=== PATIENT | male | born 1970 | race Caucasian/White ===

== ENCOUNTER → 2018-01-07 09:59 | Outpatient (CLI) | payer OTHER, SELFPAY ==
--- NOTE | 2018-01-07 10:01 | RAD_ITS ---
STUDY: X-RAY - LEFT ELBOW REASON FOR EXAM: Male, 47 years old. Pain TECHNIQUE: 3 view(s) of the elbow. COMPARISON: None. FINDINGS: Normal visualized humerus, radius and ulna. Normal radiocapitellar and ulnotrochlear articulations. The soft tissue structures are unremarkable. RAD/Elbow min 3 Views IMPRESSION: Normal x-ray examination of the elbow. Electronically Signed: Douglas Castillo MD at 22:03 EDT Tel , Service support ,
--- NOTE | 2018-01-07 10:01 | RAD_ITS ---
STUDY: X-RAY - LEFT SHOULDER REASON FOR EXAM: Posterior shoulder pain status post lifting weights. TECHNIQUE: 3 view(s) of the shoulder. COMPARISON: Radiographs 05/24/2013. FINDINGS: Normal glenohumeral articulation. Normal acromioclavicular joint. Normal acromion. Normal humeral head and visualized proximal humerus. The soft tissue structures are unremarkable. Normal visualized pulmonary apex. RAD/Shoulder min 2 Views IMPRESSION: Normal x-ray examination of the left shoulder. Electronically Signed: Kade Castelan MD at 16:16 EDT Tel , Service support ,
== END ==
PROVIDERS: Family Provider Family Medicine; PCP Family Medicine; Visit Provider Orthopaedic Surgery
DX: M25.512 Pain in left shoulder (principal); M25.522 Pain in left elbow
CPT/HCPCS: 73030; 73080

== ENCOUNTER 2018-01-26 13:30 | Outpatient (RCR) | payer OTHER, SELFPAY ==
--- NOTE | 2018-01-13 07:56 | HP.PTEVAL_ITS ---
Patient's Visit Information CHELSI WU is a 47 year old M referred to Physical Therapy by DO STEPHANIE Cardenas with a diagnosis of L elbow and shoulder pain. Date of Evaluation: 01/13/18 Physical Therapist: David Pickett PT, - Visit Plan Frequency: 2x /Week Duration: 1 Week Plan: L shoulder: issue HEP for rotator cuff strengthening, scap stab ex's. L elbow: wrist ext stretching, Ecc ex's - Subjective Subjective: Pt reports L shoulder has been sore for the past 6 weeks. Pt reports he was working out at the time, bench pressing, when he experienced a severe pain in his L shoulder. Pt notes he also began to experience L elbow pain at the same time that radates into his L pinky finger. Pt reports he tore the labrum in his L shoulder about 18 years ago that was never surgically repaired. Pt is R hand dominant. No sleep diff at this time. Pt reports he did have xrays, but no positive findings in the shoulder or elbow. 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 Pt reports he works out at home , which doesnt seem to cause him pain. L shoulder 3/10 at rest (a dull throb), and stays about the same. L elbow pain 4/10 at rest, 7/10 at worst (graping an object) - Pain L shoulder Pain Intensity (Out of 10): 3 Pain Intensity Range: 3 L elbow Pain Intensity (Out of 10): 4 Pain Intensity Range: 7 - Objective Neuro: B UE sensation is WNL to light touch. B biceps reflex= 1/3. Palpation: Pt has minor tenderness on the posterior aspect of L shoulder. No obvious deformity. Minor tenderness on the lateral epicondyle. Shoulder ROM: L shoulder flex= 155, abd= 150, ER= 50, IR WNL; R shoulder flex= 150, abd= 150, ER = 60, IR WNL. Elbow ROM: R wrist flex= 70, ext= 60; L wrist flex= 60, abd= 50. Shoulder MMT: B shoulders are 5/5 with exception to L shoulder ER= 4/5. Elbow MMT:B wrist flex and ext 5/5, with exception to L wrist ext= 4/5 and painful. Special testing: No pos tests on this date - Goals Goal 1:: I with HEP in 2-4 visits Goal Time Frame: 1 Week - Rehabilitation Potential Physical Therapy Diagnosis: Pt has L elbow pain and limited ROM secondary to lat epichondylitis. Pt has L shoulder pain and weakness secondary to rotator cuff deficiency. Rehabilitation Potential: Good - Anticipated Interventions Patient/Client Instruction: Educate patient on: Condition For the Purpose of:: To improve self management Therapeutic Exercise to Include: Strength training, Flexibilty training, Active ROM, Scapular Strength/Stabilization For the Purpose of:: To decrease pain, To increase ROM, To improve muscle performance and motor function Cryotherapy (ice pack, ice massage): Yes For the Purpose of:: To decrease pain Thank you for the opportunity to evaluate your patient. For Medicare and Medicare HMO plans, please review the plan of care and approve it. It will need to be FAXED BACK to us at [phone] for Medicare purposes. Please let me know if there are questions or concerns regarding this plan of care. Physician Signature: Date:
--- NOTE | 2018-03-10 08:43 | HP.PT.NRP ---
HP - Discharge Summary (1) - Patient Information CHELSI WU was seen in my office for initial evaluation on 01/13/18. The following Plan of Care was established for this patient: Initial Frequency: 2x /Week Initial Duration: 1 Week - Anticipated Interventions Patient/Client Instruction: Educate patient on: Condition For the Purpose of:: To improve self management Therapeutic Exercise to Include: Strength training, Flexibilty training, Active ROM, Scapular Strength/Stabilization For the Purpose of:: To decrease pain, To increase ROM, To improve muscle performance and motor function Cryotherapy (ice pack, ice massage): Yes For the Purpose of:: To decrease pain This patient was last seen in our office . Pertinent comments regarding their Physical therapy will appear below: Pt was last treated on the date of 01/26/18. Pt has not returned through this date, and is therefore discontinued at this time At this point I will be discontinuing this patient from physical therapy. I would be happy to see this patient again in the future if found appropriate by the physician. Thank you! David Pickett, PT,
== END 2018-01-26 19:00 | disposition home or self-care (01) ==
LOC: PT 13:30
PROVIDERS: Family Provider Family Medicine; PCP Family Medicine; Visit Provider Orthopaedic Surgery
DX: M25.312 Other instability, left shoulder (principal); M77.12 Lateral epicondylitis, left elbow
CPT/HCPCS: 97035; 97110; 97162

== ENCOUNTER → 2019-02-22 | Outpatient (CLI) | payer OTHER, SELFPAY ==
[2019-02-22 17:31] LABS: Absolute Lymphocyte Count 2.42 X10^3/ul (0.83-4.51); Absolute Neutrophil Count 4.4 X10^3/uL (2.0-7.7); Basophil# 0.02 X10^3/uL; Basophil% 0.3 % (0-1); Eosinophil# 0.23 X10^3/uL; Eosinophils% 2.9 % (0-5); Hematocrit 44.8 % (40-54); Hemoglobin 15.3 g/dl (13.0-16.5); Lymphocyte # 2.42 X10^3/ul (4.0); Mean Corp Hgb Conc 34.2 g/gl (32-36); Mean Corpuscular Hgb 28.9 pg (27.0-32.0); Mean Corpuscular Volume 84.7 fL (80-94); Neutrophil % 56.4 % (47-70); Platelet Count 204 K/mm3 (150-450); RBC Distribution Width CV 13.1 % (11.6-14.6); RBC Distribution Width SD 40.7 fl (35.1-43.9); Red Blood Count 5.29 M/mm3 (4.6-6.2); White Blood Count 7.8 K/mm3 (4.4-11.0)
[2019-02-22 17:32] LABS: POSITIVE COUNT NO; POSITIVE DIFFERENTIAL NO; POSITIVE MORPHOLOGY NO
== END | disposition home or self-care (01) ==
LOC: BFHLAB 02-23 16:23
PROVIDERS: Family Provider Family Medicine; PCP Family Medicine; Visit Provider Family Medicine
DX: R36.1 Hematospermia (principal)
CPT/HCPCS: 36415; 84153; 85025; G0103

== ENCOUNTER → 2019-05-24 | Outpatient (CLI) | payer OTHER, SELFPAY ==
[2019-05-24 08:09] VITALS: BMI 27.9
--- NOTE | 2019-05-24 08:21 | RAD_ITS ---
STUDY: X-RAY - LEFT SHOULDER REASON FOR EXAM: Increasing pain with certain motions, no specific injury. TECHNIQUE: 4 view(s) of the shoulder. COMPARISON: Radiographs 01/07/2018. FINDINGS: Normal glenohumeral articulation. Normal acromioclavicular joint. Normal acromion. Normal humeral head and visualized proximal humerus. The soft tissue structures are unremarkable. Normal visualized pulmonary apex. RAD/Shoulder min 2 Views IMPRESSION: Normal x-ray examination of the left shoulder. Electronically Signed: Kade Castelan MD at 9:13 EDT Tel , Service support ,
== END | disposition home or self-care (01) ==
LOC: HPRAD 08:21
PROVIDERS: Family Provider Family Medicine; PCP Family Medicine; Referring Provider Orthopaedic Surgery; Visit Provider Orthopaedic Surgery
DX: M25.512 Pain in left shoulder (principal)
CPT/HCPCS: 73030

== ENCOUNTER → 2019-06-02 10:22 | Outpatient (CLI) | payer OTHER, SELFPAY ==
[2019-05-24 08:09] VITALS: BMI 27.9
--- NOTE | 2019-06-02 10:35 | RAD_ITS ---
STUDY: X-RAY - LUMBAR SPINE REASON FOR EXAM: Male, 49 years old. Low back pain, no known injury TECHNIQUE: 5 view(s) of the lumbar spine were obtained. COMPARISON: Report of prior study of 11/11/2012 FINDINGS: Normal lumbar lordosis. There is no substantial scoliosis. There is a normal alignment of the vertebrae. There is mild endplate spondylosis of L2, L3, and L4. There is mild narrowing of the L2-3 and L3-4 disc spaces. The soft tissue structures are unremarkable. RAD/L/S Spine Min 4 Views IMPRESSION: Degenerative changes of the spine, as detailed above. Electronically Signed: Giuseppe Kessler MD at 16:56 EDT , Service support ,
== END ==
PROVIDERS: Family Provider Family Medicine; PCP Family Medicine; Referring Provider Physician Assistant; Visit Provider Physician Assistant
DX: R20.0 Anesthesia of skin (principal)
CPT/HCPCS: 72110

== ENCOUNTER 2019-06-13 12:00 | Outpatient (RCR) | payer OTHER, SELFPAY ==
[2019-05-24 08:09] VITALS: BMI 27.9
== END 2019-06-13 19:00 | disposition home or self-care (01) ==
LOC: PT 12:00
PROVIDERS: Family Provider Family Medicine; PCP Family Medicine; Referring Provider Orthopaedic Surgery; Visit Provider Orthopaedic Surgery
DX: M19.012 Primary osteoarthritis, left shoulder (principal); M54.5 Low back pain; M53.3 Sacrococcygeal disorders, not elsewhere classified; G57.00 Lesion of sciatic nerve, unspecified lower limb

== ENCOUNTER → 2020-05-25 14:48 | Outpatient (CLI) | payer OTHER, SELFPAY ==
[2019-07-07 15:11] VITALS: BMI 27.9
--- NOTE | 2020-05-25 14:53 | RAD_ITS ---
STUDY: X-RAY CHEST REASON FOR EXAM: Male, 50 years old. UPPER CHEST PAIN WITH INSPIRATION, HX BRONCHITIS A KID AND EXERCISE INDUCED ASTHMA TECHNIQUE: Frontal and lateral views COMPARISON: 10/04/2014 FINDINGS: The lungs are clear and expanded. There is no demonstrated pleural abnormality. Normal size heart. Normal mediastinum and dwayne. Normal visualized pulmonary arteries. Normal visualized aortic arch and descending thoracic aorta. Normal visualized thoracic spine. Normal visualized ribs, clavicles, and shoulders. There is no demonstrated abnormality of the visualized soft tissue structures of the upper abdomen. RAD/Chest PA and Lateral IMPRESSION: Normal x-ray examination of the chest. Electronically Signed: Zachariah Godinez DO at 15:52 EDT Tel [phone], Service support ,
== END ==
PROVIDERS: PCP Family Medicine; Referring Provider Family Medicine; Visit Provider Family Medicine
DX: R06.02 Shortness of breath (principal)
CPT/HCPCS: 71046

== ENCOUNTER → 2020-07-05 09:47 | Outpatient (CLI) | payer OTHER, SELFPAY ==
[2019-07-07 15:11] VITALS: BMI 27.9
--- NOTE | 2020-07-05 14:30 | PFTCOMP ---
COMPLETE PULMONARY FUNCTION TEST INTERPRETATION Brief HPI: Patient is a 50 year old male, currently under the care of Dr. Dunbar, who presents to [facility] for complete pulmonary function tests secondary to diagnosis of dyspnea. Respiratory therapist reports good effort and reproducible results. Interpretation: Forced expiration spirometry shows no large airways obstructive ventilatory defect with an FEV1 of 85% predicted. There is no significant bronchodilator response by strict ATS criteria. Spirograms are of good quality and plateau normally. The respiratory flow volume loop shows a normal pattern. Lung volumes by body plethysmography show an elevated total lung capacity at 8.67 L, 127% predicted. FRC and RV are elevated out of proportion. Lung volume measurements are consistent with hyperinflation and air-trapping. Diffusion capacity by carbon monoxide is normal at 82% predicted. The airway resistance is normal. No previous pulmonary function tests were available for review. Impression: These pulmonary function tests are grossly within normal limits. There is some element of air trapping with hyperinflation that may be related to occult small airways disease or a normal physiologic variant.
== END ==
PROVIDERS: PCP Family Medicine; Referring Provider Family Medicine; Visit Provider Family Medicine
DX: R06.02 Shortness of breath (principal)
CPT/HCPCS: 94060; 94726; 94729

== ENCOUNTER → 2020-08-07 11:31 | Outpatient (CLI) | payer OTHER, SELFPAY ==
[2019-07-07 15:11] VITALS: BMI 27.9
--- NOTE | 2020-08-07 11:34 | RAD_ITS ---
STUDY: X-RAY - PELVIS AND BILATERAL HIPS REASON FOR EXAM: Left hip pain for 2 days, no specific injury. TECHNIQUE: AP view of the pelvis.? 2 views of the right hip, and 2 views of the left hip were obtained. COMPARISON: Radiographs 11/11/2012. FINDINGS: There are small pelvic phleboliths. Normal bilateral iliac wings, sacroiliac joints and visualized sacrum. Normal bilateral superior and inferior pubic rami. Normal pubic symphysis. Normal bilateral ischial tuberosities. Normal visualized right femoral head. There is a bone island in the right supra-acetabular bone unchanged since the prior study. There is mild joint space narrowing of the right superior lateral right hip joint. There is interval development of the herniation pit in the lateral aspect of the left femoral head. Normal left acetabulum. Normal left hip joint. 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 Herniation pit in the left femoral head. Electronically Signed: Kade Castelan MD at 13:18 EDT Tel , Service support ,
== END ==
PROVIDERS: PCP Family Medicine; Referring Provider Family Medicine; Visit Provider Family Medicine
DX: M25.551 Pain in right hip (principal); M25.552 Pain in left hip
CPT/HCPCS: 73521

== ENCOUNTER 2020-08-29 19:26 | Emergency (ER) | payer OTHER, SELFPAY ==
[2019-07-07 15:11] VITALS: BMI 27.9
[2020-08-29 19:27] VITALS: BP 121/88; PULSE 81; RESP 18; TEMP 36.4; O2SAT 100; BMI 28.7
[2020-08-29] MEDS: morphine 8 MG/ML Syringe 6 MG IM (20:27)
[2020-08-29] MEDS: Ketorolac 15 MG/ML Vial IM (20:27)
--- NOTE | 2020-08-29 21:34 | ED.VIS.BACK ---
History of Present Illness Chief Complaint: Back Informant: Patient Onset: Today Context: Gradual Onset Timing: Continuous Quality: Aching Location: Lumbar Worsened by: improves with: Movement, Bending, Lifting Relieved by: Nothing Associated Symptoms: Numbness, Radiation to Left Leg Narrative: Patient is a 50-year-old male with no significant past medical history presenting with worsening low back pain. Patient states he started having low back pain about 3 weeks ago. He is followed up with orthopedist and physical therapy. He was told he likely has an L3/4 derangement. He has not had an MRI yet but he has had an x-ray. He has had numbness and burning in his left thigh to his knee for the past 3 weeks. He has been doing physical therapy and yesterday they worked in particularly hard and since then he has had worsening pain. He states the pain is now radiating to his toe he has had increased pain. He is taking gabapentin and tizanidine as well as Tylenol with no significant relief of his pain. He does have hydrocodone at home but has not taken it. He has pain with walking. No bowel or bladder incontinence. No perineal numbness noted. No fever or chills. No other complaints at this time. No new injury. Prior similar symptoms: With Prior Back Pain Past Medical History - Allergies and Home Meds Allergies/Adverse Reactions: Allergies No Known Allergies Allergy (Verified 08/29/20 19:30) Primary Care Physician: Sergio Dunbar MD [Primary Care Provider] - Past Medical History: None Surgical History: noncontributory Lives: Spouse/ Significant Other Smoking Status: Never smoker Review of Systems General: Denies: Chills, Fever, Sweats Eyes: Denies: Visual changes - bilaterally, Diplopia ENT: Denies: Rhinorrhea, Sore throat Cardiovascular: Denies: Chest pain, Palpitations Respiratory: Denies: Dyspnea, Cough, Dyspnea on exertion Gastrointestinal: Denies: Abdominal pain, Nausea, Vomiting, Diarrhea, Melena, Hematochezia Genitourinary: Denies: Dysuria, Hematuria, Frequency Musculoskeletal: Reports: Back pain - Left lower back, Extremity Pain - Left thigh Skin: Denies: Rash, Wounds Neurological: Reports: Parasthesia - Left thigh. Denies: Headache, Weakness, Numbness Physical Exam Vital Signs/Narrative: Vital Signs Temp Pulse Resp BP Pulse Ox 08/29/20 19:27 97.6 F L 81 18 121/88 H 100 Inital Vital Signs reviewed: Yes General: Well nourished, Well developed Head: Normocephalic, Atraumatic Eyes: Perrl, EOMI ENT: Moist mucous membranes, No rhinorrhea Neck: Supple, Nontender Cardiovascular: Regular rate, Regular rhythm, No murmurs Respiratory: No distress, CTA bilaterally, Chest nontender Abdomen: Soft, Nontender, Nondistended, Normal bowel sounds Back: Normal Inspection, Nontender, Positive SLR - Right. Negative for: Spinal tenderness, Paraspinal Tenderness Extremeties: Nontender, No edema, Strong Pulses, Symmetric. Negative for: Tenderness Skin: Normal color, No rash Neuro: Alert, Oriented, Normal Sensation, Normal DTR, Normal Gait, Parasthesia - Left thigh, - - 5 out of 5 strength with plantar and dorsiflexion of the feet bilaterally. Patient does have decreased strength with hip flexion by think this is more secondary to pain on the left. Sensation is intact to light touch. Reflexes: - - Intact bilateral patellar reflexes. Psychological: Normal affect Diagnostic/Tx/Re-eval - Medical Decision Making Evaluated for acute exacerbation of low back pain with associated sciatica. Patient seem to have physical therapy yesterday which exacerbated his pain. He is given a dose of IM Toradol and morphine with improvement of his symptoms. Patient has Hanover at home but is not been taking it because he is concerned about addiction potential. Patient is counseled that for acute pain it is fine to take for a short amount of time like 24 hours. He is not have any findings consistent with cauda equina syndrome or an acute cord lesion. He is neurovascularly intact. Patient is agreeable with discharge home to take his home Hanover, continue his tizanidine and add in Motrin to his regiment. He is counseled to decrease his Tylenol intake while taking the Hanover. He will follow-up with orthopedics and has an appointment to see spine next week. Patient is counseled on signs and symptoms requiring return to the emergency room. Patient verbalizes agreement and understand this plan. Patient discharged home in stable and improved condition. ED Disposition - Plan for ED Patient: Disposition: Home or Assisted Living Diagnosis: Acute exacerbation of chronic low back pain, Sciatica, left side Instructions: ED Back Pain Acute or Chronic Referrals: Sergio Dunbar MD [Primary Care Provider] - Additional Instructions: Follow-up with physical therapy as well as your orthopedist and your primary care doctor. Take Hanover (hydrocodone) tonight for your pain when you get home. Continue to take the muscle relaxer and start taking 600 mg of ibuprofen every 6 hours as needed for pain. You may continue to take Tylenol but only take one instead of two if you are also taking the hydrocodone as it has Tylenol in it as well. Return the emergency room if you develop incontinence, difficulty walking or worsening symptoms.
== END 2020-08-29 22:06 | disposition home or self-care (01) ==
PROVIDERS: Emergency Provider Emergency Medicine; PCP Family Medicine
DX: M54.42 Lumbago with sciatica, left side (principal)
CPT/HCPCS: 96372; 99283

== ENCOUNTER → 2020-11-17 07:18 | Outpatient (CLI) | payer OTHER, SELFPAY ==
--- NOTE | 2020-11-17 07:23 | MRI_ITS ---
STUDY: MRI LUMBAR SPINE WITHOUT CONTRAST REASON FOR EXAM: Male, 50 years old. back pain TECHNIQUE: Standardized fat and water weighted pulse sequences were obtained in the sagittal and axial planes. COMPARISON: X-ray 06/02/2019 FINDINGS: T12-L1: Normal endplates. Normal disc height, hydration and morphology. Normal bilateral facet joints. Normal central canal and bilateral lateral recesses. Normal bilateral intervertebral neural foramina. Normal lumbar lordosis. There is no substantial scoliosis. Normal conus medullaris that terminates at the L1/L2. L1-2: Mild bilobed disc protrusion with a right paracentral annular tear produces mild spinal stenosis and mild bilateral neural foraminal stenosis. L2-3: Mild bilobed disc protrusion produces mild spinal stenosis and mild bilateral neural foraminal stenosis. L3-4: Mild broad disc protrusion asymmetric to left produces mild spinal stenosis with mild right lateral recess stenosis, moderate left lateral recess stenosis with abutment of the left L4 nerve root and mild bilateral neural foraminal stenosis. L4-5: Mild broad disc protrusion produces mild spinal stenosis with mild bilateral lateral recess stenosis and mild bilateral foraminal stenosis. L5-S1: Mild broad disc protrusion produces mild spinal stenosis and mild bilateral neural foraminal stenosis. Normal visualized sacral ala. Normal visualized paraspinous soft tissue structures. MRI/Spine Lumbar (Routine) IMPRESSION: Multilevel degenerative changes, as described above. Electronically Signed: Donte Rico MD at 10:45 EST Tel , Service support ,
== END ==
PROVIDERS: PCP Family Medicine; Referring Provider Orthopaedic Surgery; Visit Provider Orthopaedic Surgery
DX: M54.16 Radiculopathy, lumbar region (principal)
CPT/HCPCS: 72148

== ENCOUNTER 2020-11-23 12:00 | Outpatient (RCR) | payer OTHER, SELFPAY ==
--- NOTE | 2020-09-18 10:28 | HP.PTEVAL ---
Patient's Visit Information CHELSI WU is a 50 year old M referred to Physical Therapy by BRENDA GROSS with a diagnosis of LUMBAR SPINAL STENOSIS AND HNP WITH RADICULOPATHY. Date of Evaluation: 09/18/20 Physical Therapist: Merlyn Vee, PT, Cert MDT - Visit Plan Frequency: 2-3x /Week Duration: 4-6 Weeks Plan: US, E-STIM WITH MH, POSTURE CORRECTION/STRENGTHENING, INSTRUCTION IN APPROPRIATE BODY MECHANICS AND ACTIVITY MODIFICATIONS. DLS STARTING WITH A NEUTRAL SPINE PROGRESSING ROM TOLERATED. SANIYA LE ROM, STRETCHING AND STRENGTHENING. HEP INSTRUCTION. CONSIDER AQUATIC THERAPY AFTER CONSULT WITH DR. MACHADO. 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 Present symptoms: LEFT KNEE NUMBNESS. NOT CURRENTLY HAVING LOW BACK. INTERMITTENT RIGHT LATERAL THIGH NUMBNESS. I DON'T WALK NORMALLY. MY LEFT THIGH IS ATROPHYING. LEFT CALF NUMBNESS. RECENT HISTORY OF RIGHT TOE NUMBNESS. PATIENT IS DESCRIBING LE NUMBNESS AND WEAKNESS LEFT > RIGHT. Present since: 6 WEEKS. Pain Scale: CURRENTLY NO PAIN BUT UP TO 8/10 PAIN 6 WEEKS AGO IN LEFT LEG. Commenced as a result of: WOKE UP WITH IT. NO APPARENT REASON. Symptoms at onset: LEFT LEG PAIN. Worse: PROLONGED WALKING POSSIBLY. WALKING UP/DOWN STEPS IS WIERD. FEELS LIKE L KNEE MIGHT BUCKLE. Better: SITTING IS THE BEST. Disturbed sleep: NO. Previous history/Previous treatment: NO BACK SURGERY. NO MRAY JO'S. H/O CHIROPRACTIC TREATMENTS WITH THE LAST TREATMENT BEING ABOUT AUG 2019. A FEW VISITS NEEDED OVER THE YEARS. HAS BEEN BEEN TO PT FOR L MORGAN, FOREARM. EPISODE OF BACK PAIN ABOUT A YEAR AGO - WENT TO [facility] AND GAVE UP AEROBIC EX AND FULL RECOVERY UNTIL 6 WKS AGO. DID START PLAYING TENNIS AGAIN THOUGH. Treatment this episode: GABAPENTIN AND MALOXACAM. ABOUT 4 PT VISITS AT [facility] - PATIENT REPORTS FIRST 2 GIBRAN'TS TRYING TO SEE WHAT HE COULD AND COULDN'T DO. STARTED SOME HERON PUSH UPS AND TRIED TRACTION. A PT INCREASED TRACTION FROM 105 LBS TO 130 LBS. RESULTED IN LEFT KNEE BURNING. GOT BETTER THEN 4 VISIT DECREASED TX AND EVERYTHING WENT FINE. VISIT 5 - WENT IN FEELING WELL BUT WAS PUT ON A PASSIVE EXTENSION MACHINE FOR 50 REPS AND ENDED UP IN ED THAT NIGHT IN EXTREME PAIN - LIGHTENING PAIN DOWN LLE TO TOE. WENT TO PHYSICIAN FOLLOW UP IN W/C AND HAD TO USE CRUTCHES. LAST PT VISIT WAS APPROX Aug. Aug CONSULT WITH DR. KOHLI (FIRST PERSON AVAILABLE) - BASED ON MRI RESULTS - GAVE 3 OPTIONS: DO NOTHING, PT, OR MIRCRODISCECTOMY. SECOND OPINION PENDING WITH DR. CARTER PETERSON. Coughing/sneezing/straining: NEGATIVE. Gait: LLE FEELS WEAK AND FEELS LIKE L LEG MIGHT BUCKLE. HAS TO BE REALLY CAREFUL ON THE STEPS. PATIENT REPORTS HIS LEFT LEG DOESN'T ACT NORMALLY WHEN HE WALKS AND HE HAS TO WALK VERY INTENTIONALLY. Difficulty initiating urinatin: NOT CURRENTLY. Accidents: NO. Unexplained weight loss: NO. Imaging: MRI 09/03/20 - L34 OR L45 HERNIATION. PMH: UNREMARKABLE. - Objective Sitting/Standing Posture: FAIR. Lordosis: MILDLY DECREASED. Lateral shift: NO. Relevant shift: N/A. Active Correction of posture: WORSE - PULLS IN L LB. Other Observations: INDEP GAIT AND TRANSFERS. Motor deficit: RIGHT LE 5/5. LEFT HIP 4-/5, KNEE EXT 4/5, KNEE FLEX 4/5, ANKLE DORSIFLEX 4/5, PLANTAR FLEXION 4-5/5. Sensory deficit: DECREASED LEFT LE COMPARED TO RIGHT. ROM deficit: SANIYA HIP FLEXOR, HS AND L GASTROC-SOLEUS TIGHTNESS. Reflexes: RIGHT LE 2/3, LLE ABSENT. Dural Signs: MILDLY POSITIVE SANIYA LE'S L>R. Lumbar mvmt loss: flex - MOD. ext - MIN. R SG - MOD. L SG - MIN. Core strength: FAIR. Palpation: MILD TENDERNESS L345 REGION. TREATMENT: NEUROMUSCULAR REEDUCATION - RETRAINING OF MVMT AND POSTURE FOR SITTING, LYING AND STANDING ACTIVITIES. NEUROMUSCULAR EDUCATION OF HNP AND POSSIBLE FACTORS LEADING TO HNP. - Goals Goal 1:: DECREASE C/O BACK AND LLE SX'S Goal Time Frame: 4-6 Weeks Goal 2:: IMPROVE WALKING, LIFTING AND RECREATIONAL FUNCTION Goal Time Frame: 4-6 Weeks Goal 3:: INSTRUCT IN PROPHYLAXIS Goal Time Frame: 4-6 Weeks - Anticipated Interventions Patient/Client Instruction: Educate patient on: Condition, Plan of Care, Risk Factors, Benefits of Fitness Program For the Purpose of:: To improve self management Therapeutic Exercise to Include: Strength training, Body mechanics, Postural training, Flexibilty training, Neuromotor development, In an aquatic setting, Dynamic Lumbar Stabilization For the Purpose of:: To decrease pain, To increase ROM, To improve muscle performance and motor function, To increase tolerance to activity/condition/position, To improve ability of physical actions for home/community/work/leisure TENS: Yes IF ES: Yes Cryotherapy (ice pack, ice massage): Yes Thermo therapy (hot pack): Yes Ultrasound (thermal/non thermal): Yes For the Purpose of:: To decrease pain, To improve nutrient delivery to tissue Thank you for the opportunity to evaluate your patient. For Medicare and Medicare HMO plans, please review the plan of care and approve it. It will need to be FAXED BACK to us at [phone] for Medicare purposes. For Medicare only, by signing this I certify the plan of care. Please let me know if there are questions or concerns regarding this plan of care. Physician Signature: Date:
--- NOTE | 2020-10-18 11:26 | HP.PTREVAL ---
BRENDA GROSS, It has been my pleasure to treat CHELSI WU over the last 11 visits for LUMBAR SPINAL STENOSIS AND HNP WITH RADICULOPATHY. Please see the progress note below for an update on the physical therapy plan of care! Subjective: Nothing new to note. Objective/Function: Adding LLE SLR to HEP today d/t demo's of TKE lag with NWBing DLP tasks (such as hip flex/ext). Unable to manage LLE SLS for noodle stomp without UE support, as compared to RLE. Very minimal cues needed from this MERCH[employer]ISE SUPPORT ASSOCIATE d/t pt's improved awareness to neutral pelvis. Demo'ing weakness at times through abdominals and glutes as well as tightness through piriformis with tendancy to rotate in sagittal plane tasks. Plan Plan: *f/u with supervising PT next appt. Would recommend transition to land PT in some way. Possibly alternating between land and pool appts. Struggling with neutral pelvis through LLE at ~50% WBing. *f/u with new HEP SLR. AQUATIC THERAPY FOR POSTURE CORRECTION/STRENGTHENING, INSTRUCTION IN APPROPRIATE BODY MECHANICS AND ACTIVITY MODIFICATIONS. DLS WITH A NEUTRAL SPINE. SANIYA LE ROM, STRETCHING AND STRENGTHENING. HEP INSTRUCTION. Goals Goal 1:: DECREASE C/O BACK AND LLE SX'S Goal Time Frame: 4-6 Weeks Goal Progress: Progressing Goal 2:: IMPROVE WALKING, LIFTING AND RECREATIONAL FUNCTION Goal Time Frame: 4-6 Weeks Goal Progress: Progressing Goal 3:: INSTRUCT IN PROPHYLAXIS Goal Time Frame: 4-6 Weeks Goal Progress: Progressing Anticipated Interventions Patient/Client Instruction: Educate patient on: Condition, Plan of Care, Risk Factors, Benefits of Fitness Program For the Purpose of:: To improve self management Therapeutic Exercise to Include: Strength training, Body mechanics, Postural training, Flexibilty training, Neuromotor development, In an aquatic setting, Dynamic Lumbar Stabilization For the Purpose of:: To decrease pain, To increase ROM, To improve muscle performance and motor function, To increase tolerance to activity/condition/position, To improve ability of physical actions for home/community/work/leisure TENS: Yes IF ES: Yes Cryotherapy (ice pack, ice massage): Yes Thermo therapy (hot pack): Yes Ultrasound (thermal/non thermal): Yes For the Purpose of:: To decrease pain, To improve nutrient delivery to tissue Please do not hesitate to contact me at [phone] by phone or if you have questions or concerns regarding this new plan of care! Sincerely, Merlyn Vee, PT, Cert MDT
--- NOTE | 2020-11-19 12:58 | HP.PTREVAL_ITS ---
Dr. 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 Please see the progress note below for an update on the physical therapy plan of care! Subjective: PATIENT REPORTS HE HAS NO PAIN AND CAN FUNCTION NORMALLY DO EVERYTHING. PATIENT REPORTS HIS BACK IS PROBABLY BETTER THAN EVERY BECAUSE HE IS STRETCHING AND SITTING RIGHT. STATES HE CAN SLEEP ALL NIGHT, SIT AT WORK, AND STAND AT WORK WITHOUT SX'S. THESE ARE THINGS HE COULDN'T DO BEFORE WITH OUT FOR INSTANCE HIS FEET GOING NUMB STANDING AT WORK. 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 PATIENT REPORTS HE TOLERATED THE LAST LAND SESSION WELL. FELT A LITTLE SHAKY ON HIS LLE BUT IT IS GETTING BETTER. PATIENT STATES HE CAN'T EVEN TELL ME HOW MUCH BETTER HE FEELS. PATIENT HAS A FEW QUESTIONS ABOUT CARDIO EX AND BACK STRENGTHENING EX. Objective/Function: PATIENT WAS SEEN TODAY FOR RE-ASSESSMENT OF PROGRESS TOWARD THE SET PT GOALS AND THE NEED FOR FURTHER PHYSICAL THERAPY VS READINESS FOR DISCHARGE. HE IS REPORTING NO PAIN AND INCREASED LLE STRENGTH. HE IS A GOOD CANDIDATE TO CONTINUE PT X 2 MORE VISITS FOR POOL CARDIO EX TRIAL/INSTRUCTION AND HOME BACK STRENGTHENING INSTRUCTION (WILL TRY TBAND ROWS, PULLDOWNS, SIDE ROW AND PLANKS) SINCE HE HAS NOT OPTED YET FOR SURGERY (OFFERED BY 2 SURGEONS) TO SEE IF HE CAN RETURN TO HIS PRIOR LEVEL OF FUNCTION. HE IS BACK TO PAINFREE ADLS BUT HAS NOT TRIED LIFTING (TRASH, LAUNDRY BASKETS ETC). PATIENT HAD ANOTHER LUMBAR MRI AND IS WAITING TO GET AND DISCUSS RESULTS WITH DR. COLLINS. UPON EXAM TODAY: LEFT HIP 4/5, KNEE EXT 5/5, KNEE FLEX 5/5, ANKLE DORSIFLEX 5/5. Sensory deficit: PATIENT STILL REPORTS L KNEE NUMBNESS. Reflexes: NT. Dural Signs: NEGATIVE LLE NOW. Lumbar mvmt loss: flex - MIN. ext - MIN. R SG - NIL. L SG - MIN. PATIENT DENIES ANY PAIN WITH LUMBAR ROM TESTING. INSTRUCTION GIVEN FOR SAFE LIFTING PROGRESSION. Plan Plan: CONT PER POC WITH ONE MORE POOL AND ONE MORE LAND VISIT FOR FURTHER POOL CARDIO AND LAND HEP INSTRUCTION. PATIENT AGREEABLE. Goals Goal 1:: DECREASE C/O BACK AND LLE SX'S Goal Time Frame: 4-6 Weeks Goal Progress: Progressing Goal 2:: IMPROVE WALKING, LIFTING AND RECREATIONAL FUNCTION Goal Time Frame: 4-6 Weeks Goal Progress: Progressing Goal 3:: INSTRUCT IN PROPHYLAXIS Goal Time Frame: 4-6 Weeks Goal Progress: Progressing Anticipated Interventions Patient/Client Instruction: Educate patient on: Condition, Plan of Care, Risk Factors, Benefits of Fitness Program For the Purpose of:: To improve self management Therapeutic Exercise to Include: Strength training, Body mechanics, Postural training, Flexibilty training, Neuromotor development, In an aquatic setting, Dynamic Lumbar Stabilization For the Purpose of:: To decrease pain, To increase ROM, To improve muscle performance and motor function, To increase tolerance to activity/con dition/position, To improve ability of physical actions for home/community/work/leisure TENS: Yes IF ES: Yes Cryotherapy (ice pack, ice massage): Yes Thermo therapy (hot pack): Yes Ultrasound (thermal/non thermal): Yes For the Purpose of:: To decrease pain, To improve nutrient delivery to tissue Please do not hesitate to contact me at [phone] by phone or if you have questions or concerns regarding this new plan of care! Sincerely, Merlyn Vee, PT, Cert MDT
--- NOTE | 2020-11-23 12:54 | HP.PTDCSUM ---
It has been my pleasure to treat CHELSI WU referred by Dr. 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 Discharge Date: 11/23/20 Please see the following information for a summary of their discharge status. Subjective: Pt running a few minutes late. Pt reports that his pain is all gone but he still has some numbness. Occ he will get a feeling of tingling but that is only occ. He will get the results of his MRI soon when he returns to his Dr. He is watching his posture and has learned a lot. He is happy that he is pain free and able to start some exercises on his own at home. LOW BACK Pain Intensity (Out of 10): 0 % Improvement: 90 Objective/Function: Pt is aware of his posture and his body movement and what he needs to avoid and continously does his ab bracing during his day. Goal 1:: DECREASE C/O BACK AND LLE SX'S Goal Progress: Progressing Goal 2:: IMPROVE WALKING, LIFTING AND RECREATIONAL FUNCTION Goal Progress: Progressing Goal 3:: INSTRUCT IN PROPHYLAXIS Goal Progress: Goal Met Plan: CONT PER POC WITH ONE MORE LAND VISIT FOR LAND HEP INSTRUCTION. PATIENT AGREEABLE. Discharge Comments: DC PT to HEP If there are questions or concerns regarding this patient's physical therapy, please feel free to call me at [phone]. Thank you for the referral of this patient. Sincerely, Kimberly Rodriguez, MPT
== END 2020-11-23 19:00 | disposition home or self-care (01) ==
LOC: PT 12:00
PROVIDERS: PCP Family Medicine; Referring Provider Orthopaedic Surgery; Visit Provider Orthopaedic Surgery
DX: M51.26 Other intervertebral disc displacement, lumbar region (principal); M51.16 Intervertebral disc disorders with radiculopathy, lumbar region; M48.061 Spinal stenosis, lumbar region without neurogenic claudication
CPT/HCPCS: 97014; 97035; 97110; 97112; 97113; 97162; 97164; 97530; G0283

== ENCOUNTER 2020-12-15 02:32 | Emergency (ER) | payer OTHER, SELFPAY ==
[2020-12-15 02:33] VITALS: BP 141/89; PULSE 81; RESP 16; TEMP 35.9; O2SAT 100; BMI 30.7
--- NOTE | 2020-12-15 02:36 | EKG12_ITS ---
Test Reason : SOB Blood Pressure : / mmHG Vent. Rate : 079 BPM Atrial Rate : 079 BPM P-R Int : 170 ms QRS Dur : 102 ms QT Int : 398 ms P-R-T Axes : 032 090 062 degrees QTc Int : 456 ms Normal sinus rhythm Rightward axis Borderline ECG Confirmed by ESTEPHANIA TAMAYO, KEREN ([id number]), film and video editor TAYLOR HENRANDES ([id number]) on 12/17/2020 10:03:17 AM Referred By: YANG Confirmed By:KEREN BEST MD
--- NOTE | 2020-12-15 02:37 | ED.VIS.GEN ---
History of Present Illness Chief Complaint: Shortness of Breath Informant: Patient Onset: Today Context: Sudden Onset Timing: Continuous Current Severity: Moderate Maximum Severity: Moderate Narrative: The patient is a 50-year-old male who presents to the emergency department with rather sudden onset shortness of breath. He states that he had a large meal tonight and ate late. He states that about 2 AM, he woke with acute shortness of breath. He states he also felt like his abdomen was bloated. He denies chest pain. He denies nausea. He states that he does feel like he cannot catch his breath and he was going to pass out. He does have a remote history of anxiety and states there are some components that feels similar. He denies fevers or chills. He has no history of abdominal surgery. He denies diarrhea or constipation. He states otherwise, has been in his normal state of health. Prior similar symptoms: Yes Recent Illness/Hospitalization: No Past Medical History - Allergies and Home Meds Allergies/Adverse Reactions: Allergies No Known Allergies Allergy (Verified 12/15/20 02:37) Primary Care Physician: Sergio Dunbar MD [Primary Care Provider] - Prior records reviewed: Yes Past Medical History: None Surgical History: noncontributory Smoking Status: Never smoker Review of Systems General: Denies: Chills, Fever, Sweats Eyes: Denies: Visual changes - bilaterally, Diplopia ENT: Denies: Rhinorrhea, Sore throat Cardiovascular: Denies: Chest pain, Palpitations Respiratory: Reports: Dyspnea. Denies: Cough, Dyspnea on exertion Gastrointestinal: Denies: Abdominal pain, Nausea, Vomiting, Diarrhea, Melena, Hematochezia Genitourinary: Denies: Dysuria, Hematuria, Frequency Musculoskeletal: Denies: Back pain, Extremity Pain Skin: Denies: Rash, Wounds Neurological: Denies: Headache, Weakness, Numbness Physical Exam Vital Signs/Narrative: Vital Signs Temp Pulse Resp BP Pulse Ox 12/15/20 02:33 96.6 F L 81 16 141/89 H 100 Inital Vital Signs reviewed: Yes General: Well nourished, Well developed, No Acute Distress Head: Normocephalic, Atraumatic Eyes: Perrl, EOMI ENT: Moist mucous membranes, No rhinorrhea Neck: Supple, Nontender Cardiovascular: Regular rate, Regular rhythm, No murmurs Respiratory: No distress, CTA bilaterally, Chest nontender Abdomen: Soft, Nontender, Nondistended, Normal bowel sounds Back: Nontender, Normal Inspection Extremities: Nontender, No edema Skin: Normal color, No rash Neurological: Alert, Oriented x3, Cranial nerves II-XII grossly intact, Normal Strength, Normal Sensation Psychological: Normal affect, Normal Mood Diagnostic/Tx/Re-eval Chest X-Ray - ED: 1 View, Read by ED Physician, Normal, Heart, Lungs, Mediastinum, Bony Structures, No Acute Disease - Rhythm Strip Rhythm Strip: Sinus Rhythm Rate: 80 Ectopy: None - EKG Initial EKG Interpretation: Sinus Rhythm, No Acute Injury Pattern Prior: Unchanged - Medical Decision Making The patient presents with rather acute onset shortness of breath when laying flat. He states he also feels bloated. The patient is not tachycardic, hypoxic, or tachypneic. He is PE RC negative. I did obtain EKG. It was sinus rhythm but evidence of acute ischemia. Was unchanged from prior. Metabolic work-up was pursued. Patient was found to be mild hypokalemia, but otherwise his labs are unremarkable. He has no abdominal tenderness. His bowel sounds are normal. Chest x-ray reviewed by myself shows no cardiomegaly, pneumonia, infiltrate, other dangerous process. The patient was treated with fluids and Ativan. He is feeling improved. At this point, I do not suspect a dangerous cause of his symptoms. I do feel that he safe for outpatient therapy. Impression 1. Dyspnea ED Disposition - Plan for ED Patient: Instructions: ED Dyspnea Referrals: Sergio Dunbar MD [Primary Care Provider] -
[2020-12-15] MEDS: 0.9% Normal Saline 1,000 ML 150 ML IV (02:45)
[2020-12-15] MEDS: LORazepam 2 MG/ML Syringe 0.5 MG IV (02:45)
--- NOTE | 2020-12-15 02:50 | RAD_ITS ---
STUDY: X-RAY CHEST REASON FOR EXAM: Male, 50 years old patient with shortness of breath. TECHNIQUE: Single AP portable view of the chest. COMPARISON: 05/25/2020. FINDINGS: Cardiac monitoring leads are present. The lungs are clear and expanded. There is no demonstrated pleural abnormality. Normal size heart. Normal mediastinum and dwayne. Normal visualized pulmonary arteries. Normal visualized aortic arch and descending thoracic aorta. Normal visualized thoracic spine. Normal visualized ribs, clavicles, and shoulders. There is no demonstrated abnormality of the visualized soft tissue structures of the upper abdomen. RAD/Chest 1 View (Portable) IMPRESSION: No radiographic evidence of acute cardiopulmonary disease. Electronically Signed: Kaylin Mcconnell MD at 4:07 EST , Service support ,
[2020-12-15 02:51] LABS: Absolute Lymphocyte Count 4.63 X10^3/uL (0.83-4.51); Absolute Neutrophil Count 3.6 X10^3/uL (2.0-7.7); Basophil# 0.08 X10^3/uL; Basophil% 0.8 % (0-1); Eosinophil# 0.27 X10^3/uL; Eosinophils% 2.8 % (0-5); Hematocrit 45.1 % (40-54); Hemoglobin 15.3 g/dL (13.0-16.5); Lymphocyte # 4.63 X10^3/ul (4.0); Lymphocyte % 48.7 % (19-41); Mean Corp Hgb Conc 33.9 g/dL (32-36); Mean Corpuscular Hgb 29.8 pg (27.0-32.0); Mean Corpuscular Volume 87.7 fL (80-94); Mean Platelet Vol. 9.2 fl (6.2-12.0); Monocyte# 0.89 X10^3/uL; Monocyte% 9.4 % (0-10); NRBC Flagged by Analyzer 0 % (0-5); Neutrophil # 3.59 X10^3/uL (2.7-7.7); Neutrophil % 37.9 % (47-70); Platelet Count 215 K/mm3 (150-450); RBC Distribution Width CV 12.5 % (11.6-14.6); RBC Distribution Width SD 40.6 fl (35.1-43.9); Red Blood Count 5.14 M/mm3 (4.6-6.2); White Blood Count 9.5 K/mm3 (4.4-11.0)
[2020-12-15 03:10] LABS: ALB/GLOB Ratio 1.1 RATIO (0.9-2.4); AST(SGOT) 35 U/L (15-37); Alanine Aminotransfer ALT/SGPT 61 U/L (16-61); Albumin, Serum 3.9 g/dL (3.2-5.0); Alkaline Phosphatase 103 U/L (45-117); Anion Gap 7 (5-15); BUN 22 mg/dL (7-18); Calcium,Total 8.8 mg/dL (8.5-10.1); Chloride 107 mmol/L (98-107); Creatinine, Serum 1.05 mg/dL (0.70-1.30); EST Glomerular Filtration Rate 80 mL/min (>60); Est Glom Filt Rate - Afr Amer 96 mL/min (>60); Estimated Creatinine Clearance 87.87 ml/min; Globulin 3.5 g/dL (2.2-4.2); Glucose 101 mg/dL (74-106); Lipase 119 U/L (73-393); Potassium 3.2 mmol/L (3.5-5.1); Protein, Total 7.4 g/dL (6.4-8.2); Sodium Level 140 mmol/L (136-145)
[2020-12-15] MEDS: Potassium Chloride Oral Tablet 20 MEQ 40 MEQ PO (03:28)
[2020-12-15 03:29] VITALS: BP 135/80; PULSE 71; RESP 16; O2SAT 96
== END 2020-12-15 03:32 | disposition home or self-care (01) ==
PROVIDERS: Emergency Provider Emergency Medicine; PCP Family Medicine
DX: R06.00 Dyspnea, unspecified (principal); E87.6 Hypokalemia
CPT/HCPCS: 71045; 80053; 83690; 84484; 85025; 93005; 96361; 96374; 99285; J7030; A4216

== ENCOUNTER → 2021-05-21 07:21 | Outpatient (CLI) | payer OTHER, SELFPAY ==
[2021-05-21 08:30] LABS: Absolute Lymphocyte Count 2.76 X10^3/uL (0.83-4.51); Absolute Neutrophil Count 2.5 X10^3/uL (2.0-7.7); Basophil# 0.06 X10^3/uL; Basophil% 0.9 % (0-1); Eosinophil# 0.28 X10^3/uL; Eosinophils% 4.4 % (0-5); Hematocrit 47.6 % (40-54); Hemoglobin 16.1 g/dL (13.0-16.5); Lymphocyte # 2.76 X10^3/ul (0.83-4.51); Lymphocyte % 43.5 % (19-41); Mean Corp Hgb Conc 33.8 g/dL (32-36); Mean Corpuscular Hgb 29.7 pg (27.0-32.0); Mean Corpuscular Volume 87.7 fL (80-94); Mean Platelet Vol. 9.3 fl (6.2-12.0); Monocyte# 0.73 X10^3/uL; Monocyte% 11.5 % (0-10); NRBC Flagged by Analyzer 0 % (0-5); Neutrophil # 2.48 X10^3/uL (2.7-7.7); Neutrophil % 39.2 % (47-70); Platelet Count 216 K/mm3 (150-450); RBC Distribution Width CV 12.6 % (11.6-14.6); RBC Distribution Width SD 40.4 fl (35.1-43.9); Red Blood Count 5.43 M/mm3 (4.6-6.2); White Blood Count 6.3 K/mm3 (4.4-11.0)
[2021-05-21 09:07] LABS: ALB/GLOB Ratio 1.2 RATIO (0.9-2.4); AST(SGOT) 31 U/L (15-37); Alanine Aminotransfer ALT/SGPT 45 U/L (16-61); Albumin, Serum 3.9 g/dL (3.2-5.0); Alkaline Phosphatase 98 U/L (45-117); Anion Gap 2 (5-15); BUN 19 mg/dL (7-18); BUN/Creat Ratio 17.4 RATIO (10-20); Calcium,Total 8.4 mg/dL (8.5-10.1); Chloride 107 mmol/L (98-107); Cholesterol 234 mg/dL (200); Creatinine, Serum 1.09 mg/dL (0.70-1.30); EST Glomerular Filtration Rate 76 mL/min (>60); Est Glom Filt Rate - Afr Amer 92 mL/min (>60); Globulin 3.3 g/dL (2.2-4.2); Glucose 101 mg/dL (74-106); High Density Lipoprotein 46 mg/dL; Potassium 3.8 mmol/L (3.5-5.1); Protein, Total 7.2 g/dL (6.4-8.2); Sodium Level 139 mmol/L (136-145); Thyroid Stim Hormone (TSH) 1.96 uIU/mL (0.358-3.74); Triglycerides 151 mg/dL; Very Low Density Lipoprotein 30 mg/dL (5-40)
== END ==
PROVIDERS: PCP Family Medicine; Referring Provider Family Medicine; Visit Provider Family Medicine
DX: R06.02 Shortness of breath (principal); R42 Dizziness and giddiness; E78.9 Disorder of lipoprotein metabolism, unspecified
CPT/HCPCS: 36415; 80053; 80061; 84443; 85025

== ENCOUNTER → 2022-02-21 | Outpatient (CLI) | payer BC, SELFPAY ==
[2022-02-21 09:03] LABS: Cholesterol 229 mg/dL (200); High Density Lipoprotein 48 mg/dL; Triglycerides 95 mg/dL; Very Low Density Lipoprotein 19 mg/dL (5-40)
[2022-03-02 03:07] LABS: Barley, Whole Grain <0.10 kU/L (Class 0); Cat Hair / Dander,Stand <0.10 kU/L (Class 0); Clam <0.10 kU/L (Class 0); Codfish <0.10 kU/L (Class 0); Corn <0.10 kU/L (Class 0); Egg, White <0.10 kU/L (Class 0); Garlic <0.10 kU/L (Class 0); Milk (Cow) <0.10 kU/L (Class 0); Peanut <0.10 kU/L (Class 0); SCALLOP <0.10 kU/L (Class 0); SESAME SEED <0.10 kU/L (Class 0); Shrimp <0.10 kU/L (Class 0); Soybean <0.10 kU/L (Class 0); Walnut, (Food) <0.10 kU/L (Class 0); Wheat <0.10 kU/L (Class 0)
[2022-03-02 08:22] LABS: Yeast <0.10 kU/L (Class 0)
== END | disposition home or self-care (01) ==
LOC: LAB 08:01
PROVIDERS: PCP Internal Medicine; Referring Provider Internal Medicine; Visit Provider Internal Medicine
DX: T78.40XA Allergy, unspecified, initial encounter (principal); E78.5 Hyperlipidemia, unspecified
CPT/HCPCS: 36415; 80061; 86003

== ENCOUNTER → 2022-06-16 | Outpatient (CLI) | payer BC, SELFPAY ==
[2022-06-16 17:13] LABS: Amphetamine Urine VISTA NEGATIVE (<1000 ng/mL); Barbiturate Urine VISTA NEGATIVE (< 200 ng/mL); Benzodiazepine Urine VISTA NEGATIVE (< 200 ng/mL); Cocaine Urine VISTA NEGATIVE (< 300 ng/mL); Ecstacy Urine VISTA NEGATIVE (< 500 ng/mL); Methadone Urine VISTA NEGATIVE (< 300 ng/mL); PCP Urine VISTA NEGATIVE (< 25 ng/mL); THC Urine VISTA NEGATIVE (< 50 ng/mL); Vista UDS pH Range 7
== END | disposition home or self-care (01) ==
LOC: LABSPEC 15:57
PROVIDERS: PCP Internal Medicine; Referring Provider Internal Medicine; Visit Provider Internal Medicine
DX: F90.9 Attention-deficit hyperactivity disorder, unspecified type (principal)
CPT/HCPCS: 80307

== ENCOUNTER 2022-09-12 08:16 | Outpatient (CLI) | payer BC, SELFPAY ==
[2022-09-12 09:41] LABS: ALB/GLOB Ratio 1.2 RATIO (0.9-2.4); AST(SGOT) 24 U/L (15-37); Alanine Aminotransfer ALT/SGPT 41 U/L (16-61); Albumin, Serum 3.7 g/dL (3.2-5.0); Alkaline Phosphatase 81 U/L (45-117); Anion Gap 6 (5-15); BUN 22 mg/dL (7-18); BUN/Creat Ratio 17.5 RATIO (10-20); Calcium,Total 8.3 mg/dL (8.5-10.1); Chloride 108 mmol/L (98-107); Cholesterol 133 mg/dL (200); Creatinine, Serum 1.26 mg/dL (0.70-1.30); EST Glomerular Filtration Rate 64 mL/min (>60); Est Glom Filt Rate - Afr Amer 77 mL/min (>60); Globulin 3.1 g/dL (2.2-4.2); Glucose 97 mg/dL (74-106); High Density Lipoprotein 45 mg/dL; Protein, Total 6.8 g/dL (6.4-8.2); Sodium Level 141 mmol/L (136-145); Triglycerides 86 mg/dL; Very Low Density Lipoprotein 17 mg/dL (5-40)
== END 2022-09-12 23:59 | disposition home or self-care (01) ==
LOC: LAB 08:18
PROVIDERS: PCP Internal Medicine; Visit Provider Internal Medicine
DX: E78.5 Hyperlipidemia, unspecified (principal)
CPT/HCPCS: 36415; 80053; 80061

== ENCOUNTER 2022-09-18 14:24 | Outpatient (CLI) | payer BC, SELFPAY ==
[2022-09-18 15:40] LABS: Absolute Neutrophil Count 3.1 X10^3/uL (2.0-7.7); Basophil# 0.06 X10^3/uL; Basophil% 0.9 % (0-1); Eosinophil# 0.32 X10^3/uL; Eosinophils% 4.7 % (0-5); Hematocrit 46.6 % (40-54); Hemoglobin 15.7 g/dL (13.0-16.5); Lymphocyte % 39.4 % (19-41); Mean Corp Hgb Conc 33.7 g/dL (32-36); Mean Corpuscular Hgb 30.1 pg (27.0-32.0); Mean Corpuscular Volume 89.3 fL (80-94); Mean Platelet Vol. 9.9 fl (6.2-12.0); Monocyte# 0.69 X10^3/uL; Monocyte% 10.1 % (0-10); NRBC Flagged by Analyzer 0 % (0-5); Neutrophil # 3.06 X10^3/uL (2.7-7.7); Neutrophil % 44.6 % (47-70); Platelet Count 203 K/mm3 (150-450); RBC Distribution Width CV 12.3 % (11.6-14.6); RBC Distribution Width SD 40.4 fl (35.1-43.9); Red Blood Count 5.22 M/mm3 (4.6-6.2); White Blood Count 6.9 K/mm3 (4.4-11.0)
[2022-09-18 15:54] LABS: Erythrocyte Sedimentation Rate 5 mm/hr (0-20)
[2022-09-18 16:17] LABS: CPK Total, Creatine Kinase 252 U/L (39-308)
== END 2022-09-18 23:59 | disposition home or self-care (01) ==
LOC: BIMLAB 14:25
PROVIDERS: PCP Internal Medicine; Referring Provider Internal Medicine; Visit Provider Internal Medicine
DX: M62.81 Muscle weakness (generalized) (principal)
CPT/HCPCS: 36415; 82550; 85025; 85652

== ENCOUNTER → 2023-03-28 | Outpatient (CLI) | payer BC, SELFPAY ==
[2023-03-28 09:27] LABS: Cholesterol 195 mg/dL (200); High Density Lipoprotein 40 mg/dL; Triglycerides 92 mg/dL; Very Low Density Lipoprotein 18 mg/dL (5-40)
== END | disposition home or self-care (01) ==
LOC: LAB 08:41
PROVIDERS: PCP Internal Medicine; Referring Provider Internal Medicine; Visit Provider Internal Medicine
DX: E78.5 Hyperlipidemia, unspecified (principal)
CPT/HCPCS: 36415; 80061

== ENCOUNTER → 2023-07-07 | Outpatient (CLI) | payer BC, SELFPAY ==
[2023-07-07 09:00] LABS: ALB/GLOB Ratio 1.2 RATIO (0.9-2.4); AST(SGOT) 29 U/L (15-37); Alanine Aminotransfer ALT/SGPT 41 U/L (16-61); Albumin, Serum 3.8 g/dL (3.2-5.0); Alkaline Phosphatase 97 U/L (45-117); Anion Gap 5 (5-15); BUN 15 mg/dL (7-18); BUN/Creat Ratio 11.2 RATIO (10-20); Calcium,Total 8.6 mg/dL (8.5-10.1); Chloride 109 mmol/L (98-107); Cholesterol 219 mg/dL (200); Creatinine, Serum 1.34 mg/dL (0.70-1.30); EST Glomerular Filtration Rate 59 mL/min (>60); Est Glom Filt Rate - Afr Amer 72 mL/min (>60); Globulin 3.3 g/dL (2.2-4.2); Glucose 107 mg/dL (74-106); High Density Lipoprotein 47 mg/dL; Potassium 4.1 mmol/L (3.5-5.1); Protein, Total 7.1 g/dL (6.4-8.2); Sodium Level 139 mmol/L (136-145); Triglycerides 115 mg/dL; Very Low Density Lipoprotein 23 mg/dL (5-40)
== END | disposition home or self-care (01) ==
LOC: LAB 08:03
PROVIDERS: PCP Internal Medicine; Referring Provider Internal Medicine; Visit Provider Internal Medicine
DX: E78.5 Hyperlipidemia, unspecified (principal)
CPT/HCPCS: 36415; 80053; 80061

== ENCOUNTER → 2024-01-18 | Outpatient (CLI) | payer BC, SELFPAY ==
[2024-01-18 11:03] LABS: Cholesterol 164 mg/dL (200); High Density Lipoprotein 49 mg/dL; Triglycerides 76 mg/dL; Very Low Density Lipoprotein 15 mg/dL (5-40)
== END | disposition home or self-care (01) ==
LOC: LAB 08:57
PROVIDERS: PCP Internal Medicine; Referring Provider Nurse Practitioner; Visit Provider Nurse Practitioner
DX: E78.5 Hyperlipidemia, unspecified (principal)
CPT/HCPCS: 36415; 80061

== ENCOUNTER → 2024-01-22 | Outpatient (CLI) | payer BC, SELFPAY ==
[2024-01-22 15:45] LABS: Absolute Lymphocyte Count 2.75 X10^3/uL (0.83-4.51); Absolute Neutrophil Count 4.1 X10^3/uL (2.0-7.7); Basophil# 0.08 X10^3/uL; Eosinophil# 0.27 X10^3/uL; Eosinophils% 3.4 % (0-5); Hematocrit 46.2 % (40-54); Hemoglobin 15.5 g/dL (13.0-16.5); Lymphocyte # 2.75 X10^3/ul (0.83-4.51); Lymphocyte % 34.8 % (19-41); Mean Corp Hgb Conc 33.5 g/dL (32-36); Mean Corpuscular Hgb 29.3 pg (27.0-32.0); Mean Corpuscular Volume 87.3 fL (80-94); Mean Platelet Vol. 9.5 fl (6.2-12.0); Monocyte# 0.71 X10^3/uL; NRBC Flagged by Analyzer 0 % (0-5); Neutrophil # 4.05 X10^3/uL (2.7-7.7); Neutrophil % 51.3 % (47-70); Platelet Count 230 K/mm3 (150-450); RBC Distribution Width CV 12.7 % (11.6-14.6); RBC Distribution Width SD 40.8 fl (35.1-43.9); Red Blood Count 5.29 M/mm3 (4.6-6.2); White Blood Count 7.9 K/mm3 (4.4-11.0)
[2024-01-22 15:51] LABS: Amphetamine Urine VISTA NEGATIVE (<1000 ng/mL); Barbiturate Urine VISTA NEGATIVE (< 200 ng/mL); Benzodiazepine Urine VISTA NEGATIVE (< 200 ng/mL); Cocaine Urine VISTA NEGATIVE (< 300 ng/mL); Ecstacy Urine VISTA NEGATIVE (< 500 ng/mL); Methadone Urine VISTA NEGATIVE (< 300 ng/mL); PCP Urine VISTA NEGATIVE (< 25 ng/mL); THC Urine VISTA NEGATIVE (< 50 ng/mL); Vista UDS pH Range 6
[2024-01-22 16:16] LABS: ALB/GLOB Ratio 1.1 RATIO (0.9-2.4); AST(SGOT) 28 U/L (15-37); Alanine Aminotransfer ALT/SGPT 43 U/L (16-61); Albumin, Serum 3.6 g/dL (3.2-5.0); Alkaline Phosphatase 104 U/L (45-117); Anion Gap 4 (5-15); BUN 17 mg/dL (7-18); Calcium,Total 8.5 mg/dL (8.5-10.1); Chloride 107 mmol/L (98-107); Creatinine, Serum 1.21 mg/dL (0.70-1.30); EST Glomerular Filtration Rate 67 mL/min (>60); Est Glom Filt Rate - Afr Amer 81 mL/min (>60); Globulin 3.3 g/dL (2.2-4.2); Glucose 87 mg/dL (74-106); PSA,Total - Annual Screen 0.61 ng/mL (0.00-4.00); Protein, Total 6.9 g/dL (6.4-8.2); Sodium Level 139 mmol/L (136-145)
== END | disposition home or self-care (01) ==
LOC: BIMLAB 14:19
PROVIDERS: PCP Internal Medicine; Referring Provider Internal Medicine; Visit Provider Internal Medicine
DX: Z00.00 Encounter for general adult medical examination without abnormal findings (principal); E78.5 Hyperlipidemia, unspecified; F90.9 Attention-deficit hyperactivity disorder, unspecified type
CPT/HCPCS: 36415; 80053; 80307; 84153; 85025; G0103

== ENCOUNTER → 2024-07-29 | Outpatient (CLI) | payer BC, SELFPAY ==
[2024-07-29 13:09] LABS: ALB/GLOB Ratio 1.2 RATIO (0.9-2.4); AST(SGOT) 25 U/L (15-37); Alanine Aminotransfer ALT/SGPT 35 U/L (16-61); Albumin, Serum 3.9 g/dL (3.2-5.0); Alkaline Phosphatase 92 U/L (45-117); Anion Gap 5 (5-15); BUN 26 mg/dL (7-18); BUN/Creat Ratio 22.2 RATIO (10-20); Calcium,Total 9.3 mg/dL (8.5-10.1); Chloride 108 mmol/L (98-107); Cholesterol 194 mg/dL (200); Creatinine, Serum 1.17 mg/dL (0.70-1.30); EST Glomerular Filtration Rate 69 mL/min (>60); Est Glom Filt Rate - Afr Amer 84 mL/min (>60); Globulin 3.2 g/dL (2.2-4.2); Glucose 83 mg/dL (74-106); High Density Lipoprotein 51 mg/dL; Potassium 4.3 mmol/L (3.5-5.1); Protein, Total 7.1 g/dL (6.4-8.2); Sodium Level 141 mmol/L (136-145); Triglycerides 106 mg/dL; Very Low Density Lipoprotein 21 mg/dL (5-40)
== END | disposition home or self-care (01) ==
LOC: BIMLAB 09:21
PROVIDERS: PCP Internal Medicine; Referring Provider Internal Medicine; Visit Provider Internal Medicine
DX: E78.5 Hyperlipidemia, unspecified (principal)
CPT/HCPCS: 36415; 80053; 80061

== ENCOUNTER → 2024-11-09 | Outpatient (CLI) | payer BC, SELFPAY ==
--- NOTE | 2024-11-09 14:26 | CT_ITS ---
EXAM: CT ABDOMEN AND PELVIS WITHOUT INTRAVENOUS CONTRAST CLINICAL INDICATION: Left flank pain. Kidney stone protocol. TECHNIQUE: Helically acquired images were obtained of the abdomen and pelvis without intravenous contrast. This CT exam was performed using one or more of the following dose reduction techniques: automated exposure control, adjustment of the mA and/or kV according to patient size, and/or use of iterative reconstruction technique. RADIATION DOSE: CTDIvol = 12.20 mGy, DLP = 607.18 mGy-cm COMPARISON: No relevant prior studies available. FINDINGS: LOWER THORAX: Unremarkable. Lung bases are clear. No cardiomegaly. No significant pericardial effusion. ABDOMEN: LIVER: Unremarkable. Homogeneous. GALLBLADDER AND BILE DUCTS: Unremarkable. No calcified gallstones. No gallbladder distention or wall edema. No intra- or extrahepatic biliary ductal dilation. PANCREAS: Unremarkable. No focal cystic mass. SPLEEN: Unremarkable. Normal size without focal cystic or solid mass. ADRENALS: Unremarkable. No nodules. KIDNEYS AND URETERS: Unremarkable. Normal renal size and position. No hydronephrosis. STOMACH AND BOWEL: Unremarkable. No stomach or bowel distention. No focal inflammatory change. PELVIS: APPENDIX: Normal. BLADDER: Unremarkable. REPRODUCTIVE: Unremarkable as visualized. No mass. ABDOMEN and PELVIS: INTRAPERITONEAL SPACE: Unremarkable. No ascites or other fluid collection. No free air. BONES/JOINTS: Mild degenerative retrolisthesis of L2 on L3 with prominent posterior bulging disc. No suspicious lytic or blastic abnormality. SOFT TISSUES: Unremarkable. No discrete abdominal or pelvic wall hernia. VASCULATURE: Mildly ectatic infrarenal abdominal aorta with calcified gabriel. Mildly ectatic common iliac arteries with calcified gabriel. LYMPH NODES: Unremarkable. No enlarged lymph nodes. CT/Abdomen/Pelvis without Cont IMPRESSION: 1. No acute findings in the abdomen or pelvis. 2. No CT evidence of stones in the kidneys and no hydronephrosis. Electronically Signed: Vishnu Page MD at 15:24 EST ,
== END | disposition home or self-care (01) ==
LOC: CT 14:24
PROVIDERS: PCP Internal Medicine; Referring Provider Physician Assistant; Visit Provider Physician Assistant
DX: R10.9 Unspecified abdominal pain (principal)
CPT/HCPCS: 74176

== ENCOUNTER 2024-11-11 17:36 | Observation (INO) | payer BC, SELFPAY ==
[2024-11-11 17:37] VITALS: BP 147/100; PULSE 78; RESP 15; TEMP 36.2; O2SAT 100; BMI 28.8
--- NOTE | 2024-11-11 18:19 | ED.RN ---
PT STATES TWO WEEKS AGO HE STARTED HAVING PAIN AND BLOOD IN HIS URINE, CALLED PCP, WHO ORDERED CT WITH CONCERNS OF KIDNEY STONES. NO EVIDENCE WAS SEEN ON CT OF KIDNEY STONES. PT STATES HE IS STILL HAVE A PAIN THAT WILL NOT LET UP. BM HAVE BEEN IRREGULAR AND NOT NORMAL FOR HIM.
--- NOTE | 2024-11-11 18:30 | CT_ITS ---
INDICATION: abdominal pain EXAMINATION: CT Abdomen And Pelvis W/ Contrast Injection TECHNIQUE: Helically acquired images were obtained of the abdomen and pelvis after IV contrast. A radiation dose optimization technique was used for this scan. IV Contrast dosage and agent: IV 100mL [id number] Oral contrast: None. COMPARISON: 11/09/2024. FINDINGS: Visualized lung bases: Unremarkable Liver: Unremarkable Gallbladder: Unremarkable Spleen: Unremarkable Pancreas: Unremarkable Adrenal Glands: Unremarkable Kidneys: Unremarkable Vasculature: Mild scattered aortoiliac atherosclerotic calcifications. GI Tract: The appendix is mildly dilated measuring up to 9 mm in diameter. There is questionable minimal wall thickening and surrounding fat stranding. Scattered colonic diverticula. Lymphadenopathy: None Peritoneum: No ascites. Bladder: Unremarkable Reproductive organs: The prostate is mildly enlarged. Bones/Soft tissues: Mild scattered degenerative changes of the visualized spine. CT/Abdomen/Pelvis W IV Cont ONLY IMPRESSION: Findings equivocal for acute nonruptured appendicitis. No other acute abnormalities in the abdomen or pelvis. Prostatomegaly. Correlate with PSA levels. Diverticulosis. Electronically Signed: Lito Peralta MD at 20:10 EST ,
[2024-11-11] MEDS: Ondansetron 4 MG/2 ML Vial IV (18:43)
[2024-11-11] MEDS: 0.9% Normal Saline (1000mL) 1,000 ML 999 ML IV (18:43)
[2024-11-11] MEDS: Ketorolac 15 MG/ML Vial IV (18:43)
[2024-11-11 18:52] LABS: Absolute Lymphocyte Count 2.01 X10^3/uL (0.83-4.51); Absolute Neutrophil Count 5.3 X10^3/uL (2.0-7.7); Basophil# 0.08 X10^3/uL; Basophil% 0.9 % (0-1); Eosinophil# 0.34 X10^3/uL; Hemoglobin 15.8 g/dL (13.0-16.5); Lymphocyte # 2.01 X10^3/ul (0.83-4.51); Lymphocyte % 23.6 % (19-41); Mean Corp Hgb Conc 34.3 g/dL (32-36); Mean Corpuscular Hgb 29.5 pg (27.0-32.0); Mean Platelet Vol. 9.4 fl (6.2-12.0); Monocyte# 0.72 X10^3/uL; Monocyte% 8.4 % (0-10); NRBC Flagged by Analyzer 0 % (0-5); Neutrophil # 5.34 X10^3/uL (2.7-7.7); Neutrophil % 62.6 % (47-70); Platelet Count 232 K/mm3 (150-450); RBC Distribution Width CV 12.6 % (11.6-14.6); RBC Distribution Width SD 39.2 fl (35.1-43.9); Red Blood Count 5.35 M/mm3 (4.6-6.2); White Blood Count 8.5 K/mm3 (4.4-11.0)
[2024-11-11 18:57] LABS: Mucous, Urine 0 SEEN /hpf (<or=2+); Squamous Epithelial Cells - UA 0 SEEN /hpf (0-5)
[2024-11-11 19:06] LABS: Color, Urine Yellow (Yellow); Glucose, Dipstick Normal (Normal); Ketone-Dipstick 15 mg/dl (Negative); Leukocyte Esterase-Dipstick Negative /ul (Negative); Nitrite-Dipstick Negative (Negative); Occult Blood-Urine 10 /ul (Negative); Protein-Dipstick Negative (Negative); Urine Bilirubin Dipstick Negative (Negative); Urine Clarity Clear (Clear); Urine Urobilinogen Normal (Normal)
[2024-11-11 19:15] LABS: Bacteria RARE /hpf (None Seen); Red Blood Cells-Urine 0-5 SEEN /hpf (0-5); White Blood Cells 0-5 SEEN /hpf (0-5)
[2024-11-11 19:16] LABS: Amorphous Sediment 1+
[2024-11-11 19:17] LABS: ALB/GLOB Ratio 1.1 RATIO (0.9-2.4); AST(SGOT) 37 U/L (15-37); Alanine Aminotransfer ALT/SGPT 61 U/L (16-61); Albumin, Serum 3.8 g/dL (3.2-5.0); Alkaline Phosphatase 91 U/L (45-117); Anion Gap 5 (5-15); BUN 14 mg/dL (7-18); BUN/Creat Ratio 9.9 RATIO (10-20); Calcium,Total 9.3 mg/dL (8.5-10.1); Chloride 105 mmol/L (98-107); Creatinine, Serum 1.42 mg/dL (0.70-1.30); EST Glomerular Filtration Rate 55 mL/min (>60); Est Glom Filt Rate - Afr Amer 67 mL/min (>60); Estimated Creatinine Clearance 68.28 ml/min; Globulin 3.4 g/dL (2.2-4.2); Glucose 91 mg/dL (74-106); Lipase 24 U/L (13-75); Potassium 4.2 mmol/L (3.5-5.1); Protein, Total 7.2 g/dL (6.4-8.2); Sodium Level 139 mmol/L (136-145); Troponin-I HS 4 pg/mL (3.0-78.0)
--- NOTE | 2024-11-11 19:23 | EX.ED.DYSGE1 ---
HPI <SHARON Belle - Last Filed: 11/11/24 20:36> History of Present Illness Chief Complaint: Abd Pain Narrative Narrative: Patient is a 54-year-old male with history of ADHD who presents to the emergency department with ongoing pain to the left back, left upper abdomen, bloating. Patient states that he has been seeing his PCP for this over the last 2 weeks. Patient did receive a noncontrast CT scan of the abdomen pelvis that was negative. He still has the pain today, and thinks that he needs a CT scan with IV contrast. He spoke with his doctor told to go the [facility] apartment. Denies any fever or chills. Patient states he does drink alcohol however socially once or twice a week. Here for evaluation. [facility] <SHARON Belle - Last Filed: 11/11/24 20:36> [facility] Medical History Screening for prostate cancer Colon cancer screening Screening for cardiovascular condition Intertriginous dermatitis associated with moisture Muscle weakness GERD (gastroesophageal reflux disease) Anxiety with [employer] Health care maintenance Hyperlipidemia Hearing loss Asthma Home Medications ?Medication ?Instructions ?Recorded ?Last Taken ?Type lorazepam 0.5 mg tablet (Ativan) 0.5 mg PO DAILY PRN anxiety #10 09/19/24 Unknown Rx tabs pantoprazole 40 mg tablet,delayed 40 mg PO DAILY #90 tabs 09/28/24 Unknown Rx release albuterol sulfate 90 mcg/actuation 2 puff inhalation Q6H PRN 10/24/24 Unknown Rx aerosol inhaler shortness of breath or wheezing #8.5 grams nystatin 100,000 unit/gram topical 1 applic topical TID #60 grams 10/24/24 Unknown Rx powder dextroamphetamine-amphetamine ER 5 5 mg PO DAILY 30 days #30 caps 10/26/24 Unknown Rx mg 24hr capsule,extend release cyclobenzaprine 5 mg tablet See Rx Instructions PO TID PRN 11/04/24 Unknown Rx muscle spasm #30 tabs meloxicam 15 mg tablet 15 mg PO QDAY #30 tabs 11/05/24 Unknown Rx amoxicillin 875 mg-potassium 1 tab PO BID #20 tabs 11/10/24 Unknown Rx clavulanate 125 mg tablet Allergy/AdvReac Type Severity Reaction Status Date / Time [id number] Reductase Allergy Unknown Pain in Verified 11/11/24 18:22 Inhibitor joints Family History Grandfather Heart disease Myocardial infarction Surgical History History of myringotomy History of esophagogastroduodenoscopy (EGD) History of tonsillectomy and adenoidectomy Social History Smoking Status: Never smoker alcohol intake: current alcohol intake frequency: 0-2 drinks per day Alcohol type: beer substance use type: does not use what type of physical activity do you participate in: walking, running, bicycling and swimming frequency: 5-6 times per week ROS <SHARON Belle - Last Filed: 11/11/24 20:36> ROS ED ROS Narrative Constitutional: Negative for fever, chills, weight loss, weakness Eyes: Negative for vision loss, vision change, double vision ENT: Negative for any sore throat, ear pain, congestion Cardiovascular: Negative for any chest pain, tightness, palpitations Respiratory: Negative for any cough, sputum production, hemoptysis, dyspnea, dyspnea on exertion, orthopnea Gastrointestinal: Negative for any nausea, vomiting, diarrhea, constipation, blood in stool, blood in vomit. Positive for abdominal pain, bloating : Negative for any urinary frequency, dysuria, retention, blood in urine Muscle skeletal: Negative for any neck pain. Positive for back pain Neurological: Negative for any headache, syncope, dizziness Skin: Negative for any rashes, itching, abrasions, lacerations Psychiatric: Negative for any depression, anxiety, stress, suicidal ideation, homicidal ideation Hematologic: Negative for any excessive bruising, easy bleeding EXAM <SHARON Belle - Last Filed: 11/11/24 20:36> Physical Exam Narrative Exam Narrative: Vital signs reviewed. HEET: Head normocephalic atraumatic, TMs clear bilaterally. Posterior pharynx is clear, moist mucous membranes. Nares clear bilaterally. Neck: Supple with no lymphadenopathy or tenderness. No signs of meningismus. Cardiac: Regular rate and rhythm no murmurs gallops or rubs, equal peripheral pulses bilaterally. Respiratory: Lungs clear to auscultation bilaterally. No chest tenderness. Abdomen: Soft, nontender, nondistended. No abdominal bruit or pulsatile masses. No hepatosplenomegaly Extremities: No peripheral edema, no signs of gross trauma or deformity. Active full range of motion of all extremities. Neuro: Cranial nerves II through XII intact, no focal neurological deficits. Skin: Clean dry and intact with no rash, purpura, petechiae, vesicles or pustules. Backs/flank: No CVA tenderness, no midline spinal tenderness, no deformity. Psych: Normal mood and affect. No SI, HI or acute psychosis. Const Vital Signs: 11/11/24 17:37 11/11/24 20:24 11/11/24 21:27 Temperature 97.2 F L 97.9 F Temperature Source Temporal Pulse Rate 78 74 Respiratory Rate 15 18 18 Blood Pressure 147/100 H 142/88 H 139/79 H Blood Pressure Mean 115 106 99 Pulse Ox 100 97 97 Oxygen Delivery Method Room Air Room Air <Dr. Levi Steele DO - Last Filed: 11/11/24 23:38> Physical Exam Const Vital Signs: 11/11/24 17:37 11/11/24 20:24 11/11/24 21:27 Temperature 97.2 F L 97.9 F Temperature Source Temporal Pulse Rate 78 74 Respiratory Rate 15 18 18 Blood Pressure 147/100 H 142/88 H 139/79 H Blood Pressure Mean 115 106 99 Pulse Ox 100 97 97 Oxygen Delivery Method Room Air Room Air [facility] <SHARON Belle - Last Filed: 11/11/24 20:36> [facility] Lab Data Labs: Laboratory Results - last 24 hr 11/11/24 11/11/24 18:17 18:50 WBC 8.5 RBC 5.35 Hgb 15.8 Hct 46.0 MCV 86.0 MCH 29.5 MCHC 34.3 RDW Std Deviation 39.2 RDW Coeff of Junior 12.6 Plt Count 232 MPV 9.4 Immature Gran % (Auto) 0.500 Neut % (Auto) 62.6 Lymph % (Auto) 23.6 [place] % (Auto) 8.4 Eos % (Auto) 4.0 Baso % (Auto) 0.9 Absolute Neuts (auto) 5.3 Absolute Lymphs (auto) 2.01 Nucleated RBC % 0 Sodium 139 Potassium 4.2 Chloride 105 Carbon Dioxide 29.0 Anion Gap 5 BUN 14 Creatinine 1.42 H Estim Creat Clear Calc 68.28 Est GFR (MDRD) Af Amer 67 Est GFR (MDRD) Non-Af 55 L BUN/Creatinine Ratio 9.9 L Glucose 91 Calcium 9.3 Total Bilirubin 0.90 AST 37 ALT 61 Alkaline Phosphatase 91 Troponin I High Sens 4 Total Protein 7.2 Albumin 3.8 Globulin 3.4 Albumin/Globulin Ratio 1.1 Lipase 24 Urine Color Yellow Urine Clarity Clear Urine pH 7.0 Ur Specific [place] 1.010 Urine Protein Negative Urine Glucose (UA) Normal Urine Ketones 15 H Urine Occult Blood 10 H Urine Nitrite Negative Urine Bilirubin Negative Urine Urobilinogen Normal Ur Leukocyte Esterase Negative Urine RBC 0-5 SEEN Urine WBC 0-5 SEEN Ur Squamous Epith Cells 0 SEEN Amorphous Sediment 1+ Urine Bacteria RARE Urine Mucus 0 SEEN Radiography Diagnostic Testing: Clinical Impression(s) from Imaging Studies Abdomen/Pelvis CT 11/11/24 18:30 IMPRESSION: Findings equivocal for acute nonruptured appendicitis. No other acute abnormalities in the abdomen or pelvis. Prostatomegaly. Correlate with PSA levels. Diverticulosis. Electronically Signed: Lito Peralta MD at 20:10 EST , Treatment and Re-Evaluation :: Differential diagnosis includes however is not limited to: Bowel obstruction, pancreatitis, obstructive uropathy, kidney infarct, diverticulitis, enteritis Patient appears generally well, vital signs are stable, patient is nontoxic-appearing. Presenting to the [facility] for ongoing pain to the abdomen, left back and bloating that is been ongoing for 2 weeks. Patient was has basic laboratory values including a CT scan of the abdomen pelvis with IV contrast. Physical examination was negative for any red flag signs. All radiologic examinations were read, reviewed by the emergency department attending. From these reads, a plan of care will be put in place. Patient's laboratory values showed normal CBC, patient's chemistries show a creatinine of 1.42, slightly elevated, 6 months ago, it was 1.17. Patient's lipase was negative. Patient's urinalysis was negative for any infection. Patient CT scan of the abdomen pelvis shows findings equivocal for acute nonruptured appendicitis. No other acute abnormalities in the abdomen or pelvis. Prostatomegaly. Secondary to this finding, I will reach out to surgery I spoke with surgery, he will admit the patient. Patient started IV Zosyn. Made the patient aware. Patient is resting comfortably. Stable for admission <Dr. Levi Steele DO - Last Filed: 11/11/24 23:38> [facility] Lab Data Labs: Laboratory Results - last 24 hr 11/11/24 11/11/24 18:17 18:50 WBC 8.5 RBC 5.35 Hgb 15.8 Hct 46.0 MCV 86.0 MCH 29.5 MCHC 34.3 RDW Std Deviation 39.2 RDW Coeff of Junior 12.6 Plt Count 232 MPV 9.4 Immature Gran % (Auto) 0.500 Neut % (Auto) 62.6 Lymph % (Auto) 23.6 [place] % (Auto) 8.4 Eos % (Auto) 4.0 Baso % (Auto) 0.9 Absolute Neuts (auto) 5.3 Absolute Lymphs (auto) 2.01 Nucleated RBC % 0 Sodium 139 Potassium 4.2 Chloride 105 Carbon Dioxide 29.0 Anion Gap 5 BUN 14 Creatinine 1.42 H Estim Creat Clear Calc 68.28 Est GFR (MDRD) Af Amer 67 Est GFR (MDRD) Non-Af 55 L BUN/Creatinine Ratio 9.9 L Glucose 91 Calcium 9.3 Total Bilirubin 0.90 AST 37 ALT 61 Alkaline Phosphatase 91 Troponin I High Sens 4 Total Protein 7.2 Albumin 3.8 Globulin 3.4 Albumin/Globulin Ratio 1.1 Lipase 24 Urine Color Yellow Urine Clarity Clear Urine pH 7.0 Ur Specific [place] 1.010 Urine Protein Negative Urine Glucose (UA) Normal Urine Ketones 15 H Urine Occult Blood 10 H Urine Nitrite Negative Urine Bilirubin Negative Urine Urobilinogen Normal Ur Leukocyte Esterase Negative Urine RBC 0-5 SEEN Urine WBC 0-5 SEEN Ur Squamous Epith Cells 0 SEEN Amorphous Sediment 1+ Urine Bacteria RARE Urine Mucus 0 SEEN Radiography Diagnostic Testing: Clinical Impression(s) from Imaging Studies Abdomen/Pelvis CT 11/11/24 18:30 IMPRESSION: Findings equivocal for acute nonruptured appendicitis. No other acute abnormalities in the abdomen or pelvis. Prostatomegaly. Correlate with PSA levels. Diverticulosis. Electronically Signed: Lito Peralta MD at 20:10 EST , Treatment and Re-Evaluation :: Differential diagnosis includes however is not limited to: Bowel obstruction, pancreatitis, obstructive uropathy, kidney infarct, diverticulitis, enteritis Patient appears generally well, vital signs are stable, patient is nontoxic-appearing. Presenting to the [facility] for ongoing pain to the abdomen, left back and bloating that is been ongoing for 2 weeks. Patient was has basic laboratory values including a CT scan of the abdomen pelvis with IV contrast. Physical examination was negative for any red flag signs. All radiologic examinations were read, reviewed by the emergency department attending. From these reads, a plan of care will be put in place. Patient's laboratory values showed normal CBC, patient's chemistries show a creatinine of 1.42, slightly elevated, 6 months ago, it was 1.17. Patient's lipase was negative. Patient's urinalysis was negative for any infection. Patient CT scan of the abdomen pelvis shows findings equivocal for acute nonruptured appendicitis. No other acute abnormalities in the abdomen or pelvis. Prostatomegaly. Secondary to this finding, I will reach out to surgery I spoke with surgery, he will admit the patient. Patient started IV Zosyn. Made the patient aware. Patient is resting comfortably. Stable for admission ED attending note: I evaluated the patient in conjunction with the GIBRAN. I agree with his/her statements and above findings. I have personally performed a face to face assessment of the patient and have reviewed the GIBRAN Note. I performed a substantive portion of the visit including all aspects of the following. I personally saw the patient performed chart review, physical exam, reviewed labs, imaging (if obtained), and formulated a treatment and management plan. This note was generated with [employer] software. It may contain incorrect words, spelling, and punctuation that were not noted in review of the chart prior to signing. Discharge Plan Dx/Rx/DC Orders Clinical Impression: Acute appendicitis, Abdominal pain Disposition Disposition: Acute Care [facility] Discharge Date/Time: 11/11/24 21:41
[2024-11-11 20:24] VITALS: BP 142/88; RESP 18; O2SAT 97
[2024-11-11] MEDS: Piperacil/Tazobactam 3.375 GM in 0.9% Normal Saline (50mL MB+) 50 ML IV (20:59)
[2024-11-11 21:22] VITALS: BMI 28.1
[2024-11-11 21:27] VITALS: BP 139/79; PULSE 74; RESP 18; TEMP 36.6; O2SAT 97
[2024-11-11 22:09] VITALS: BP 145/89; PULSE 75; RESP 14; TEMP 36.5; O2SAT 100
[2024-11-11] MEDS: oxyCODONE 5 MG Tablet PO (22:32)
[2024-11-11] MEDS: Acetaminophen 500 MG Tablet 1000 MG PO (22:32)
[2024-11-12 04:45] VITALS: BP 144/89; PULSE 71; RESP 14; TEMP 36.8; O2SAT 99
[2024-11-12] MEDS: Piperacil/Tazobactam 3.375 GM in 0.9% Normal Saline (50mL MB+) 50 ML IV (04:54)
[2024-11-12] MEDS: Acetaminophen 500 MG Tablet 1000 MG PO (04:56)
[2024-11-12] MEDS: oxyCODONE 5 MG Tablet PO (04:56)
--- NOTE | 2024-11-12 05:00 | EKG12_ITS ---
Test Reason : AM EKG Blood Pressure : */* mmHG Vent. Rate : 71 BPM Atrial Rate : 71 BPM P-R Int : 174 ms QRS Dur : 88 ms QT Int : 408 ms P-R-T Axes : 18 -44 -13 degrees QTcB Int : 443 ms Normal sinus rhythm Left axis deviation Inferior infarct , age undetermined Abnormal ECG When compared with ECG of 15-Dec-2020 02:45, QRS axis Shifted left Inferior infarct is now Present Nonspecific T wave abnormality now evident in Inferior leads Confirmed by MEENA TAMAYO, HANNY ([id number]), newspaper editor managing SANGEETA SEE ([id number]) on 11/14/2024 1:58:41 PM Referred By: FRANCES Confirmed By: HANNY ROBLEDO MD
[2024-11-12 06:06] LABS: Absolute Lymphocyte Count 2.76 X10^3/uL (0.83-4.51); Basophil# 0.09 X10^3/uL; Basophil% 1.1 % (0-1); Eosinophil# 0.61 X10^3/uL; Eosinophils% 7.4 % (0-5); Hemoglobin 14.8 g/dL (13.0-16.5); Lymphocyte # 2.76 X10^3/ul (0.83-4.51); Lymphocyte % 33.6 % (19-41); Mean Corp Hgb Conc 33.6 g/dL (32-36); Mean Corpuscular Hgb 29.2 pg (27.0-32.0); Mean Corpuscular Volume 86.8 fL (80-94); Mean Platelet Vol. 9.1 fl (6.2-12.0); Monocyte# 0.73 X10^3/uL; Monocyte% 8.9 % (0-10); NRBC Flagged by Analyzer 0 % (0-5); Neutrophil % 48.6 % (47-70); Platelet Count 212 K/mm3 (150-450); RBC Distribution Width CV 12.8 % (11.6-14.6); RBC Distribution Width SD 40.2 fl (35.1-43.9); Red Blood Count 5.07 M/mm3 (4.6-6.2); White Blood Count 8.2 K/mm3 (4.4-11.0)
[2024-11-12 06:55] LABS: Anion Gap 9 (5-15); BUN 14 mg/dL (7-18); Calcium,Total 8.8 mg/dL (8.5-10.1); Chloride 107 mmol/L (98-107); Creatinine, Serum 1.27 mg/dL (0.70-1.30); EST Glomerular Filtration Rate 63 mL/min (>60); Est Glom Filt Rate - Afr Amer 76 mL/min (>60); Estimated Creatinine Clearance 75.58 ml/min; Glucose 90 mg/dL (74-106); Potassium 3.6 mmol/L (3.5-5.1); Sodium Level 139 mmol/L (136-145)
[2024-11-12 08:41] VITALS: BP 128/81; PULSE 62; RESP 18; TEMP 36.3; O2SAT 98; BMI 28.1
[2024-11-12 09:00] VITALS: BP 128/81; PULSE 62; RESP 18; TEMP 36.3; O2SAT 99
--- NOTE | 2024-11-12 11:07 | HP.PCM_ITS ---
HPI - General General Date of Admission: 11/11/24 Date of Service: 11/12/24 Chief Complaint: Left flank pain HPI Narrative CHELSI WU, is a 54 M who who presented to the emergency department at [facility] last evening with complaints of left flank pain for the past 2 weeks. He states that this pain began on a day in which she worked out and then later shoveled snow. He states that pain started in the high left flank fairly close to midline posteriorly and this pain has been a persistent stabbing pain since. He does state that there has been some migration of pain to a more inferior location but this has remained in the left flank. He is also mentioned that he has had some mild numbness involving the left lateral hip region as well. He went and saw his PCP. He had some blood in his urine and there was concern for possible kidney stone. He was sent to get a stat noncontrast CT a few days ago. This did not show any kidney stone or other abnormality. His appendix was normal. Patient continued to have this pain and recontacted his PCP office and they referred him to the ER to get a contrasted CT. He presented last night to the emergency room. He was seen evaluate by the ER staff. Blood work was fairly unremarkable. White count was normal. Urinalysis did show blood in his urine. His creatinine was slightly elevated. Contrasted CT seem to indicate the possibility of questionable appendix thickening. Equivocal nonruptured appendicitis was a consideration although clinically he had absolutely no right sided pain and no other GI symptoms to suggest appendicitis. Nevertheless I was contacted by the emergency room, I recommended that he be admitted for further evaluation. This morning he continues to deny any right-sided abdominal pain. He states the pain is mostly in the left flank and seems to be most noticeable when he changes position or moves. No fevers or chills. No change in appetite. [facility] Medical History Screening for prostate cancer Colon cancer screening Screening for cardiovascular condition Intertriginous dermatitis associated with moisture Muscle weakness GERD (gastroesophageal reflux disease) Anxiety with flying Health care maintenance Hyperlipidemia Hearing loss Asthma Home Medications ?Medication ?Instructions ?Recorded ?Last Taken ?Type lorazepam 0.5 mg tablet (Ativan) 0.5 mg PO DAILY PRN anxiety #10 09/19/24 Unknown Rx tabs pantoprazole 40 mg tablet,delayed 40 mg PO DAILY #90 tabs 09/28/24 Unknown Rx release albuterol sulfate 90 mcg/actuation 2 puff inhalation Q6H PRN 10/24/24 Unknown Rx aerosol inhaler shortness of breath or wheezing #8.5 grams nystatin 100,000 unit/gram topical 1 applic topical TID #60 grams 10/24/24 Unknown Rx powder dextroamphetamine-amphetamine ER 5 5 mg PO DAILY 30 days #30 caps 10/26/24 Unknown Rx mg 24hr capsule,extend release cyclobenzaprine 5 mg tablet See Rx Instructions PO TID PRN 11/04/24 Unknown Rx muscle spasm #30 tabs meloxicam 15 mg tablet 15 mg PO QDAY #30 tabs 11/05/24 Unknown Rx amoxicillin 875 mg-potassium 1 tab PO BID #20 tabs 11/10/24 Unknown Rx clavulanate 125 mg tablet Allergy/AdvReac Type Severity Reaction Status Date / Time [id number] Reductase Allergy Unknown Pain in Verified 11/11/24 18:22 Inhibitor joints Family History Grandfather Heart disease Myocardial infarction Surgical History History of myringotomy History of esophagogastroduodenoscopy (EGD) History of tonsillectomy and adenoidectomy Social History Smoking Status: Never smoker alcohol intake: current alcohol intake frequency: 0-2 drinks per day Alcohol type: beer substance use type: does not use what type of physical activity do you participate in: walking, running, bicycling and swimming frequency: 5-6 times per week ROS Constitutional Constitutional: Reports systems reviewed and no addt'l complaints, except as documented Eyes Eyes: Reports systems reviewed and no addt'l complaints, except as documented ENT HEENT: Reports systems reviewed and no addt'l complaints, except as documented Cardiovascular Cardiovascular: Reports systems reviewed and no addt'l complaints, except as documented Respiratory/Chest Respiratory/Chest: Reports systems reviewed and no addt'l complaints, except as documented Gastrointestinal Gastrointestinal: Reports systems reviewed and no addt'l complaints, except as documented Genitourinary Genitourinary: Reports systems reviewed and no addt'l complaints, except as documented Vital Signs Vital Signs Vital Signs: 11/11/24 17:37 11/11/24 20:24 11/11/24 21:27 Temperature 97.2 F L 97.9 F Temperature Source Temporal Pulse Rate 78 74 Respiratory Rate 15 18 18 Blood Pressure 147/100 H 142/88 H 139/79 H Blood Pressure Mean 115 106 99 Blood Pressure Source Blood Pressure Position Blood Pressure Location Pulse Ox 100 97 97 Oxygen Delivery Method Room Air Room Air 11/11/24 22:09 11/12/24 04:45 11/12/24 08:41 Temperature 97.7 F L 98.3 F 97.3 F L Temperature Source Oral Oral Temporal Pulse Rate 75 71 62 Respiratory Rate 14 14 18 Blood Pressure 145/89 H 144/89 H 128/81 H Blood Pressure Mean 107 107 96 Blood Pressure Source Monitor Monitor Monitor Blood Pressure Position Sitting Supine Semi-Fowlers Blood Pressure Location Right Arm Right Arm Right Arm Pulse Ox 100 99 98 Oxygen Delivery Method Room Air Room Air Room Air Weight Weight: 196 lb 6.91 oz Body Mass Index (BMI) 28.1 Physical Exam Narrative He is alert and oriented x 3. He is in no acute distress. His head is normocephalic and atraumatic. Pupils are equal round and reactive to light. Abdomen is completely soft, nontender and nondistended. There is absolutely no tenderness to palpation in the right lower quadrant or right flank. Really no tenderness in the left lower quadrant either. There is some tenderness on the left posteriorly near the midline. He also described some numbness involving the left posterior lateral back and hip region. No bruising or evidence of trauma. No skin rashes or lesions Results Medical Records Data Attestation: I reviewed the patient's medical records Lab / Micro Data Attestation: I reviewed the patient's lab results. 11/12/24 05:35 11/12/24 05:35 Labs: Laboratory Results - last 24 hr 11/11/24 18:17: WBC 8.5, RBC 5.35, Hgb 15.8, Hct 46.0, MCV 86.0, MCH 29.5, MCHC 34.3, RDW Std Deviation 39.2, RDW Coeff of Junior 12.6, Plt Count 232, MPV 9.4, Immature Gran % (Auto) 0.500, Neut % (Auto) 62.6, Lymph % (Auto) 23.6, [place] % (Auto) 8.4, Eos % (Auto) 4.0, Baso % (Auto) 0.9, Absolute Neuts (auto) 5.3, Absolute Lymphs (auto) 2.01, Nucleated RBC % 0, Sodium 139, Potassium 4.2, Chloride 105, Carbon Dioxide 29.0, Anion Gap 5, BUN 14, Creatinine 1.42 H, Estim Creat Clear Calc 68.28, Est GFR (MDRD) Af Amer 67, Est GFR (MDRD) Non-Af 55 L, B UN/Creatinine Ratio 9.9 L, Glucose 91, Calcium 9.3, Total Bilirubin 0.90, AST 37, ALT 61, Alkaline Phosphatase 91, Troponin I High Sens 4, Total Protein 7.2, Albumin 3.8, Globulin 3.4, Albumin/Globulin Ratio 1.1, Lipase 24 11/11/24 18:50: Urine Color Yellow, Urine Clarity Clear, Urine pH 7.0, Ur Specific [place] 1.010, Urine Protein Negative, Urine Glucose (UA) Normal, Urine Ketones 15 H, Urine Occult Blood 10 H, Urine Nitrite Negative, Urine Bilirubin Negative, Urine Urobilinogen Normal, Ur Leukocyte Esterase Negative, Urine RBC 0-5 SEEN, Urine WBC 0-5 SEEN, Ur Squamous Epith Cells 0 SEEN, Amorphous Sediment 1+, Urine Bacteria RARE, Urine Mucus 0 SEEN 11/12/24 05:35: WBC 8.2, RBC 5.07, Hgb 14.8, Hct 44.0, MCV 86.8, MCH 29.2, MCHC 33.6, RDW Std Deviation 40.2, RDW Coeff of Junior 12.8, Plt Count 212, MPV 9.1, Immature Gran % (Auto) 0.400, Neut % (Auto) 48.6, Lymph % (Auto) 33.6, [place] % (Auto) 8.9, Eos % (Auto) 7.4 H, Baso % (Auto) 1.1 H, Absolute Neuts (auto) 4.0, Absolute Lymphs (auto) 2.76, Nucleated RBC % 0, Sodium 139, Potassium 3.6, Chloride 107, Carbon Dioxide 23.0, Anion Gap 9, BUN 14, Creatinine 1.27, Estim Creat Clear Calc 75.58, Est GFR (MDRD) Af Amer 76, Est GFR (MDRD) Non-Af 63, BUN/Creatinine Ratio 11.0, Glucose 90, Calcium 8.8 Imaging Radiology Impression Abdomen/Pelvis CT 11/11/24 18:30 IMPRESSION: Findings equivocal for acute nonruptured appendicitis. No other acute abnormalities in the abdomen or pelvis. Prostatomegaly. Correlate with PSA levels. Diverticulosis. Electronically Signed: Lito Peralta MD at 20:10 EST , Assessment & Plan Assessment/Plan (1) Left flank pain: PLAN: Plan The patient is a 54-year-old male who has been having left flank pain for the past 2 weeks. Patient has undergone 2 CAT scans in the past week. CAT scan last evening showed a slightly dilated appendix but very equivocal findings to suggest at least consideration of appendicitis. I reviewed both CAT scans and really was not impressed by the findings. Clinically he had no right sided pain or other symptoms to suggest appendicitis. I think the likelihood of appendicitis is quite low. I would be much more likely to think that his pain may be either musculoskeletal or possibly even a kidney stone. He did have some blood in his urine but no signs of stone on CT scan. The location of the pain in the left flank as well as the numbness that he describes concerns me for possibly a back or nerve issue. I discussed his case with the patient and his at great length this morning. I think the likelihood of appendicitis is quite low even despite the imaging findings especially since he is no clinical pain in the typical location for appendicitis. The mutually agreed upon plan was to give the patient diet and plan for discharge home later today. Patient states that he would feel more comfortable going home on antibiotics. I am not certain if this is necessary but would be happy to do so. Patient states that he actually has Flexeril prescribed at home. I suggested that he take this medication. I will also give him 1 dose of Flexeril today as well. I recommend that he keep well-hydrated. Would recommend that he follow-up with his PCP. He may certainly follow-up with me as needed as an outpatient. Certainly I stated that if any pain in the right lower quadrant develops, he should contact my office or present to the emergency room. He is agreeable to this plan. All questions and concerns were addressed. This plan was also discussed at great length with the patient's nurse today as well. Will plan for discharge home later today Charges/Coding Visit Charges Inpatient E&M: 38286 Init Hosp L3
--- NOTE | 2024-11-12 11:26 | DS.PCM_ITS ---
Providers Date of Admission: 11/11/24 Primary Care Physician: Dr. Jacob Ugarte MD Reason For Visit: ABDOMINAL PAIN Diagnosis Discharge Diagnosis (1) Left flank pain: Status: Acute Code(s): R10.9 - Unspecified abdominal pain Plan The patient is a 54-year-old male who has been having left flank pain for the past 2 weeks. Patient has undergone 2 CAT scans in the past week. CAT scan last evening showed a slightly dilated appendix but very equivocal findings to suggest at least consideration of appendicitis. I reviewed both CAT scans and really was not impressed by the findings. Clinically he had no right sided pain or other symptoms to suggest appendicitis. I think the likelihood of appendicitis is quite low. I would be much more likely to think that his pain may be either musculoskeletal or possibly even a kidney stone. He did have some blood in his urine but no signs of stone on CT scan. The location of the pain in the left flank as well as the numbness that he describes concerns me for possibly a back or nerve issue. I discussed his case with the patient and his at great length this morning. I think the likelihood of appendicitis is quite low even despite the imaging findings especially since he is no clinical pain in the typical location for appendicitis. The mutually agreed upon plan was to give the patient diet and plan for discharge home later today. Patient states that he would feel more comfortable going home on antibiotics. I am not certain if this is necessary but would be happy to do so. Patient states that he actually has Flexeril prescribed at home. I suggested that he take this medication. I will also give him 1 dose of Flexeril today as well. I recommend that he keep well-hydrated. Would recommend that he follow-up with his PCP. He may certainly follow-up with me as needed as an outpatient. Certainly I stated that if any pain in the right lower quadrant develops, he should contact my office or present to the emergency room. He is agreeable to this plan. All questions and concerns were addressed. This plan was also discussed at great length with the patient's nurse today as well. Will plan for discharge home later today Medications at Discharge Home Medications lorazepam 0.5 mg tablet (Ativan) 0.5 mg PO DAILY PRN anxiety #10 tabs 09/19/24 pantoprazole 40 mg tablet,delayed release 40 mg PO DAILY #90 tabs 09/28/24 albuterol sulfate 90 mcg/actuation aerosol inhaler 2 puff inhalation Q6H PRN shortness of breath or wheezing #8.5 grams 10/24/24 nystatin 100,000 unit/gram topical powder 1 applic topical TID #60 grams 10/24/24 dextroamphetamine-amphetamine ER 5 mg 24hr capsule,extend release 5 mg PO DAILY 30 days #30 caps 10/26/24 cyclobenzaprine 5 mg tablet See Rx Instructions PO TID PRN muscle spasm #30 tabs 11/04/24 meloxicam 15 mg tablet 15 mg PO QDAY #30 tabs 11/05/24 amoxicillin 875 mg-potassium clavulanate 125 mg tablet 1 tab PO BID #20 tabs 11/10/24 amoxicillin 500 mg-potassium clavulanate 125 mg tablet (Augmentin) 1 tab PO Q12H 7 days #14 tabs 11/12/24 Hospital Course Operations None Procedures None Summary of Care Provided Minutes Spent on Discharge: 15 Hospital Course: Patient presented to the hospital with left flank pain for 2 weeks. He was seen in the emergency room. CT scan showed no kidney stone or other pathology on the left however there was very equivocal findings of questionable appendicitis. Patient had no clinical symptoms to correlate with the questionable CT scan reading. He was admitted for observation and hydration along with antibiotics. It was felt that his symptoms were more likely to be either musculoskeletal versus kidney stone. Appendicitis was highly unlikely. Plan was for discharge home and to follow-up with PCP Physical Exam Const alert, oriented x3 and no apparent distress Weight / BMI Weight Weight: 196 lb 6.91 oz Body Mass Index (BMI) 28.1 ABG / Lab / Microbiology Data 11/12/24 05:35 11/12/24 05:35 Laboratory: Laboratory Results - last 24 hr 11/11/24 18:17: WBC 8.5, RBC 5.35, Hgb 15.8, Hct 46.0, MCV 86.0, MCH 29.5, MCHC 34.3, RDW Std Deviation 39.2, RDW Coeff of Junior 12.6, Plt Count 232, MPV 9.4, Immature Gran % (Auto) 0.500, Neut % (Auto) 62.6, Lymph % (Auto) 23.6, Rock % (Auto) 8.4, Eos % (Auto) 4.0, Baso % (Auto) 0.9, Absolute Neuts (auto) 5.3, Absolute Lymphs (auto) 2.01, Nucleated RBC % 0, Sodium 139, Potassium 4.2, Chloride 105, Carbon Dioxide 29.0, Anion Gap 5, BUN 14, Creatinine 1.42 H, Estim Creat Clear Calc 68.28, Est GFR (MDRD) Af Amer 67, Est GFR (MDRD) Non-Af 55 L, B UN/Creatinine Ratio 9.9 L, Glucose 91, Calcium 9.3, Total Bilirubin 0.90, AST 37, ALT 61, Alkaline Phosphatase 91, Troponin I High Sens 4, Total Protein 7.2, Albumin 3.8, Globulin 3.4, Albumin/Globulin Ratio 1.1, Lipase 24 11/11/24 18:50: Urine Color Yellow, Urine Clarity Clear, Urine pH 7.0, Ur Specific [place] 1.010, Urine Protein Negative, Urine Glucose (UA) Normal, Urine Ketones 15 H, Urine Occult Blood 10 H, Urine Nitrite Negative, Urine Bilirubin Negative, Urine Urobilinogen Normal, Ur Leukocyte Esterase Negative, Urine RBC 0-5 SEEN, Urine WBC 0-5 SEEN, Ur Squamous Epith Cells 0 SEEN, Amorphous Sediment 1+, Urine Bacteria RARE, Urine Mucus 0 SEEN 11/12/24 05:35: WBC 8.2, RBC 5.07, Hgb 14.8, Hct 44.0, MCV 86.8, MCH 29.2, MCHC 33.6, RDW Std Deviation 40.2, RDW Coeff of Junior 12.8, Plt Count 212, MPV 9.1, Immature Gran % (Auto) 0.400, Neut % (Auto) 48.6, Lymph % (Auto) 33.6, Rock % (Auto) 8.9, Eos % (Auto) 7.4 H, Baso % (Auto) 1.1 H, Absolute Neuts (auto) 4.0, Absolute Lymphs (auto) 2.76, Nucleated RBC % 0, Sodium 139, Potassium 3.6, Chloride 107, Carbon Dioxide 23.0, Anion Gap 9, BUN 14, Creatinine 1.27, Estim Creat Clear Calc 75.58, Est GFR (MDRD) Af Amer 76, Est GFR (MDRD) Non-Af 63, BUN/Creatinine Ratio 11.0, Glucose 90, Calcium 8.8 Radiography Diagnostic Testing: Radiology Impression Abdomen/Pelvis CT 11/11/24 18:30 IMPRESSION: Findings equivocal for acute nonruptured appendicitis. No other acute abnormalities in the abdomen or pelvis. Prostatomegaly. Correlate with PSA levels. Diverticulosis. Electronically Signed: Lito Peralta MD at 20:10 EST Reading Location ID and State: [address] [place] [address] Tel , Service support , D/C Instructions Discharge Diet: No restrictions Discharge Activity: Return to Normal Activity Ice area for (Minutes): 30 Call your doctor if your incision/area has: Increased Pain/ Swelling Call your doctor if you observe: Fever of 101 or Higher and - (Worsening right lower quadrant pain) DC O2, CPAP, BIPAP Needs Home O2 Discharge instructions: No Additional Instructions: Take antibiotics as directed Take Flexeril as previously prescribed Ice pack/heat to left flank Follow-up with PCP Meaningful Use Info Meaningful Use Meaningful Use Diagnoses (Choose all that apply): None applicable Ischemic Stroke Statin Dosing Therapy Reference: STATIN DOSE THERAPY REFERENCE: * Patients > 75 years receive moderate or high dose statin therapy. * Patients 75 years or YOUNGER should receive HIGH intensity statin dose unless contraindicated. You will be required to document reason for non-treatment if statin daily dose does not meet guidelines. HIGH DOSE STATIN THERAPY DAILY Atorvastatin > than or = to 40 mg Rosuvastatin > than or = to 20 mg Amlodipine + Atorvastatin > than or = to 2.5/40 mg Ezetimibe + Simvastatin 10/80 mg Simvastatin 80mg Discharge Plan Admission Admit Date/Time: 11/11/24 21:52 Primary Reason for Your Visit: Left flank pain Attending Provider: Douglas Mathis Primary Care Provider: Jacob Ugarte Discharge Orders/Prescriptions Prescriptions: New amoxicillin-pot clavulanate [Augmentin] 500-125 mg tablet 1 tab PO Q12H 7 Days Qty: 14 0RF Continued cyclobenzaprine 5 mg tablet See Rx Instructions PO TID PRN (Reason: muscle spasm) Qty: 30 0RF Rx Instructions: 0.5 to 1 tablet orally three times a day PRN; 1 meloxicam 15 mg tablet 15 mg PO QDAY Qty: 30 0RF lorazepam [Ativan] 0.5 mg tablet 0.5 mg PO DAILY PRN (Reason: anxiety) Qty: 10 0RF pantoprazole 40 mg tablet,delayed release (DR/EC) 40 mg PO DAILY Qty: 90 0RF nystatin 100,000 unit/gram powder 1 applic topical TID Qty: 60 5RF albuterol sulfate 90 mcg/actuation HFA aerosol inhaler 2 puff inhalation Q6H PRN (Reason: shortness of breath or wheezing) Qty: 8.5 3RF dextroamphetamine-amphetamine 5 mg capsule,extended release 24hr 5 mg PO DAILY 30 Days Qty: 30 0RF amoxicillin-pot clavulanate 875-125 mg tablet 1 tab PO BID Qty: 20 0RF Referrals / Follow Up: Jacob Ugarte MD [Primary Care Provider] - Disposition Disposition (needs filled in before D/C Order can be placed): Home, Self Care Charges/Coding Visit Charges Inpatient E&M: 85379 Init Hosp L3
[2024-11-12] MEDS: cycloBENZAPRine HCl 5 MG TABLET PO (12:22)
[2024-11-12 13:01] VITALS: BP 130/87; PULSE 67; RESP 18; TEMP 37; O2SAT 98
== END 2024-11-12 13:11 | disposition home or self-care (01) ==
LOC: ED 20:36 → MS3 21:56
PROVIDERS: Nurse Practitioner; Admitting Provider Surgery; Emergency Provider Emergency Medicine; PCP Internal Medicine; Visit Provider Surgery
DX: R10.12 Left upper quadrant pain (principal); E78.5 Hyperlipidemia, unspecified; K21.9 Gastro-esophageal reflux disease without esophagitis; R14.0 Abdominal distension (gaseous); Z79.899 Other long term (current) drug therapy; J45.909 Unspecified asthma, uncomplicated; R20.0 Anesthesia of skin
CPT/HCPCS: 36415; 74177; 80048; 80053; 81001; 83690; 84484; 85025; 93005; 96361; 96365; 96366; 96375; 99221; 99284; Q9967; A4216; G0378; J2405

== ENCOUNTER 2024-12-26 08:56 | Day surgery (SDC) | payer BC, SELFPAY ==
--- NOTE | 2024-12-23 12:56 | PAT.ANE_ITS ---
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 When Was Last Pacemaker Check QUESTION #4 FULL TEXT: You/Your Family Experience fever (hyperthermia) with Anesthesia Last Oral Intake Last Oral intake: Last Oral Intake NPO since Meds taken in AM with sips of water? Meds patient instructed to take am of surgery PONV PONV - slubber frame changer: PONV - slubber frame changer Female No 12/23/24 12:37 HX of Motion Sickness No 12/23/24 12:37 HX of N/V After Surgery No 12/23/24 12:37 Non-Smoker Yes 12/23/24 12:37 Duration of Surgery greater No 12/23/24 12:37 than 60 minutes Number of Risk Factors 1 12/23/24 12:37 PONV Score Low Risk 12/23/24 12:37 Height & Weight Height & Weight: Anesthesia: Height & Weight Height 5 ft 10 in 12/20/24 08:03 Respiratory Assessment Respiratory Assessment - slubber frame changer: Respiratory Tract Infection Hx - slubber frame changer Hx Respiratory Tract Infection No 12/23/24 12:37 STOP Sleep Apnea STOP Sleep Apnea - slubber frame changer: STOP Sleep Apnea - slubber frame changer Hx Hypertension No 12/23/24 12:37 Hx Sleep Apnea No 12/23/24 12:37 CPAP BIPAP Do you snore loudly (louder No 12/23/24 12:37 than talking or can be heard Do you often feel tired/ No 12/23/24 12:37 fatigued/ sleepy during daytime? Has anyone observed you stop No 12/23/24 12:37 breathing during sleep? STOP Results Negative 12/23/24 12:37 QUESTION #5 FULL TEXT : Do you snore loudly (louder than talking or can be heard through closed doors)? 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 Specify any problems Hx of Preganancy in last 3 N/A 12/23/24 12:37 Months Nurse Filling Out Transfusion [facility]LEHMAN 12/23/24 12:37 & Questions: Date: 12/23/24 12/23/24 12:37 Time: 12:45 12/23/24 12:37 Patient unable to answer at this time (ie. confused, unrespo /Reproduction History /Reproductive History - slubber frame changer: /Reproductive Hx- slubber frame changer Hx Now Gestational Age (in weeks): EDC: Hx Hx Para Hx Section SAB PFSH Medical History Wears contact lenses Alcohol use High cholesterol Dietary restriction Non-smoker Screening for prostate cancer Colon cancer screening Screening for cardiovascular condition Intertriginous dermatitis associated with moisture Muscle weakness GERD (gastroesophageal reflux disease) Anxiety with flying Health care maintenance Hyperlipidemia Hearing loss Asthma Home Medications ?Medication ?Instructions ?Recorded ?Last Taken ?Type lorazepam 0.5 mg tablet (Ativan) 0.5 mg PO DAILY PRN a nxiety #10 09/19/24 Unknown Rx tabs albuterol sulfate 90 mcg/actuation 2 puff inhalation Q 6H PRN 10/24/24 Unknown Rx aerosol inhaler shortness of breath or wheez ing #8.5 grams nystatin 100,000 unit/gram topical 1 applic topical TI D #60 grams 10/24/24 Unknown Rx powder cholecalciferol (vitamin D3) 50 50 mcg PO QDAY 5 Unknown History mcg (2,000 unit) capsule lysine 500 mg tablet 500 mg PO QDAY PRN cold sore s 11/23/24 Unknown History red yeast rice 600 mg capsule 600 mg PO QDAY 11/23/24 Unknown History vitamin B complex 1 tab PO QDAY 11/23/24 Unkno wn History dextroamphetamine-amphetamine ER 5 5 mg PO DAILY 30 da ys #30 caps 11/28/24 Unknown Rx mg 24hr capsule,extend release pantoprazole 40 mg tablet,delayed 40 mg PO DAILY #90 t abs 12/19/24 Unknown Rx release Allergy/AdvReac Type Severity Reaction Status Date / Time [id number] Reductase Allergy Unknown Pain in Verified 12/20/24 08:03 Inhibitor joints Family History Grandfather Heart disease Myocardial infarction Surgical History History of myringotomy History of esophagogastroduodenoscopy (EGD) History of tonsillectomy and adenoidectomy Social History household members: spouse current occupational status: employed Smoking Status: Never smoker alcohol intake: current alcohol intake frequency: 0-2 drinks per day Alcohol type: beer substance use type: does not use what type of physical activity do you participate in: walking, running, bicycling and swimming frequency: 5-6 times per week Audit: Pertinent Findings Pertinent Findings EKG Perinent findings: 11/12/2024 normal sinus rhythm 71 bpm left axis deviation inferior infarct, age undetermined. Recommendation Anesthesia Recommendation Anesthesia recommendation: OPTIMIZED for anesthesia
[2024-12-26] VITALS (7 sets, daily range): BP systolic 108–133; BP diastolic 71–91; PULSE 63–74; RESP 16–18; TEMP 36.2–36.9; O2SAT 95–98; BMI 27.8
--- NOTE | 2024-12-26 09:26 | PCM.PRE.AN2 ---
ASA Classification* ASA Classification ASA Classification: 2 Assessment & Plan Anesthesia* Anesthesia Assessment Anesthesia Assessment: Discussed sedation and/or anesthesia options, risks, benefits, and alternatives with patient/parents/legal guardian/POA. Questions invited. The patient/parents/legal guardian/POA seems to understand and agrees to proceed with anesthesia plan. Reviewed the physical assessment, medical history, allergy history and patient home medications list prior to surgery/procedure/anesthetic and documented any changes. Performed airway and anesthesia risk assessments. Anesthesia Type Anesthesia Type: MAC Anesthesia Focused Assessment* Airway Assessment Mouth opens: >3 cm Mallampati Score: II Focused Labs Anesthesia Preop lab: CBC WBC 8.2 K/mm3 (4.4-11.0) 11/12/24 05:35 11/12/24 RBC 5.07 M/mm3 (4.6-6.2) 11/12/24 05:35 11/12/24 Hgb 14.8 g/dL (13.0-16.5) 11/12/24 05:35 11/12/24 Hct 44.0 % (40-54) 11/12/24 05:35 11/12/24 Plt Count 212 K/mm3 (150-450) 11/12/24 05:35 11/12/24 CHEMISTRY Potassium 3.6 mmol/L (3.5-5.1) 11/12/24 05:35 11/12/24 Sodium 139 mmol/L (136-145) 11/12/24 05:35 11/12/24 BUN 14 mg/dL (7-18) 11/12/24 05:35 11/12/24 Creatinine 1.27 mg/dL (0.70-1.30) 11/12/24 05:35 11/12/24 Glucose 90 mg/dL (74-106) 11/12/24 05:35 11/12/24 TSH 1.96 uIU/mL (0.358-3.74) 05/21/21 07:27 05/21/21 COAG Pre-Assessment Diagnosis/Proposed Procedure Planned Operative Procedure(s): COLONOSCOPY Anesthesia History 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 When Was Last Pacemaker Check QUESTION #4 FULL TEXT: You/Your Family Experience fever (hyperthermia) with Anesthesia Last Oral Intake Last Oral intake: Last Oral Intake NPO since Meds taken in AM with sips of water? 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 Female No 12/23/24 12:37 HX of Motion Sickness No 12/23/24 12:37 HX of N/V After Surgery No 12/23/24 12:37 Non-Smoker Yes 12/23/24 12:37 Duration of Surgery greater No 12/23/24 12:37 than 60 minutes Number of Risk Factors 1 12/23/24 12:37 PONV Score Low Risk 12/23/24 12:37 Height & Weight Height & Weight: Anesthesia: Height & Weight Height 5 ft 10 in 12/20/24 08:03 Respiratory Assessment Respiratory Assessment - business process consultant: Respiratory Tract Infection Hx - business process consultant Hx Respiratory Tract Infection No 12/23/24 12:37 STOP Sleep Apnea STOP Sleep Apnea - business process consultant: STOP Sleep Apnea - business process consultant Hx Hypertension No 12/23/24 12:37 Hx Sleep Apnea No 12/23/24 12:37 CPAP BIPAP Do you snore loudly (louder No 12/23/24 12:37 than talking or can be heard Do you often feel tired/ No 12/23/24 12:37 fatigued/ sleepy during daytime? Has anyone observed you stop No 12/23/24 12:37 breathing during sleep? STOP Results Negative 12/23/24 12:37 QUESTION #5 FULL TEXT : Do you snore loudly (louder than talking or can be heard through closed doors)? 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 Specify any problems Hx of Preganancy in last 3 N/A 12/23/24 12:37 Months Nurse Filling Out Transfusion EHKENT 12/23/24 12:37 & Questions: Date: 12/23/24 12/23/24 12:37 Time: 12:45 12/23/24 12:37 Patient unable to answer at this time (ie. confused, unrespo /Reproduction History /Reproductive History - business process consultant: /Reproductive Hx- business process consultant Hx Now Gestational Age (in weeks): EDC: Hx Hx Para Hx Section SAB PFSH Medical History Wears contact lenses Alcohol use High cholesterol Dietary restriction Non-smoker Screening for prostate cancer Colon cancer screening Screening for cardiovascular condition Intertriginous dermatitis associated with moisture Muscle weakness GERD (gastroesophageal reflux disease) Anxiety with flying Health care maintenance Hyperlipidemia Hearing loss Asthma Home Medications ?Medication ?Instructions ?Recorded ?Last Taken ?Type lorazepam 0.5 mg tablet (Ativan) 0.5 mg PO DAILY PRN anxiety #10 09/19/24 Unknown Rx tabs albuterol sulfate 90 mcg/actuation 2 puff inhalation Q6H PRN 10/24/24 Unknown Rx aerosol inhaler shortness of breath or wheezing #8.5 grams nystatin 100,000 unit/gram topical 1 applic topical TID #60 grams 10/24/24 Unknown Rx powder cholecalciferol (vitamin D3) 50 50 mcg PO QDAY 11/23/24 12/24/24 History mcg (2,000 unit) capsule lysine 500 mg tablet 500 mg PO QDAY PRN cold sores 11/23/24 12/24/24 History red yeast rice 600 mg capsule 600 mg PO QDAY 11/23/24 12/24/24 History vitamin B complex 1 tab PO QDAY 02/05/25 03/08/25 History dextroamphetamine-amphetamine ER 5 5 mg PO DAILY 30 days #30 caps 11/28/24 12/24/24 Rx mg 24hr capsule,extend release pantoprazole 40 mg tablet,delayed 40 mg PO DAILY #90 tabs 12/19/24 12/25/24 Rx release Allergy/AdvReac Type Severity Reaction Status Date / Time [id number] Reductase Allergy Unknown Pain in Verified 12/26/24 09:22 Inhibitor joints Family History Grandfather Heart disease Myocardial infarction Surgical History History of myringotomy History of esophagogastroduodenoscopy (EGD) History of tonsillectomy and adenoidectomy Social History household members: spouse current occupational status: employed Smoking Status: Never smoker alcohol intake: current alcohol intake frequency: 0-2 drinks per day Alcohol type: beer substance use type: does not use what type of physical activity do you participate in: walking, running, bicycling and swimming frequency: 5-6 times per week Review of Systems (Anesthesia) ROS Narrative System reviewed and no additional complaints, except as documented.
--- NOTE | 2024-12-26 09:45 | HP.PCM_ITS ---
[facility] - General General Date of Service: 12/26/24 [facility] Narrative CHELSI WU, is a 54 M who presents for a screening colonoscopy. Patient has also had some recent left flank plain which he went to the ER for and did see Dr. Mathis. There is some question on CAT scan for equivocal for nonruptured appendicitis which she did follow-up with Dr. Mathis for which recommend completing this colonoscopy as it is already scheduled. Patient does admit to some reflux has been on Protonix for couple of years initially put on due to silent reflux. Patient did have an EGD about 10 years ago. Patient states he was previously on other PPIs prior to the Protonix. Patient complains more of abdominal bloating and even some bloating in the left lower quadrant area as well as epigastric for the last couple months. Patient denies any family history of colon cancer. Patient has bowel movements daily denies any blood. COUNT INCLUDES THE [facility] Medical History Wears contact lenses Alcohol use High cholesterol Dietary restriction Non-smoker Screening for prostate cancer Colon cancer screening Screening for cardiovascular condition Intertriginous dermatitis associated with moisture Muscle weakness GERD (gastroesophageal reflux disease) Anxiety with [employer] care maintenance Hyperlipidemia Hearing loss Asthma Home Medications ?Medication ?Instructions ?Recorded ?Last Taken ?Type lorazepam 0.5 mg tablet (Ativan) 0.5 mg PO DAILY PRN a nxiety #10 09/19/24 Unknown Rx tabs albuterol sulfate 90 mcg/actuation 2 puff inhalation Q 6H PRN 10/24/24 Unknown Rx aerosol inhaler shortness of breath or wheez ing #8.5 grams nystatin 100,000 unit/gram topical 1 applic topical TI D #60 grams 10/24/24 Unknown Rx powder cholecalciferol (vitamin D3) 50 50 mcg PO QDAY 5 12/24/24 History mcg (2,000 unit) capsule lysine 500 mg tablet 500 mg PO QDAY PRN cold sore s 11/23/24 12/24/24 History red yeast rice 600 mg capsule 600 mg PO QDAY 11/23/24 12/24/24 History vitamin B complex 1 tab PO QDAY 11/23/2412/24 History dextroamphetamine-amphetamine ER 5 5 mg PO DAILY 30 da ys #30 caps 11/28/24 12/24/24 Rx mg 24hr capsule,extend release pantoprazole 40 mg tablet,delayed 40 mg PO DAILY #90 t abs 12/19/24 12/25/24 Rx release Allergy/AdvReac Type Severity Reaction Status Date / Time Opjpwvf-XRA-GkB Reductase Allergy Unknown Pain in Verified 12/26/24 09:22 Inhibitor joints Family History Grandfather Heart disease Myocardial infarction Surgical History History of myringotomy History of esophagogastroduodenoscopy (EGD) History of tonsillectomy and adenoidectomy Social History (Reviewed 12/26/24 @ 09: by Dr. Tian Flowers MD) household members: spouse current occupational status: employed Smoking Status: Never smoker alcohol intake: current alcohol intake frequency: 0-2 drinks per day Alcohol type: beer substance use type: does not use what type of physical activity do you participate in: walking, running, bicycling and swimming frequency: 5-6 times per week Past Medical/Surgical History Planned Operation Planned Operative Procedure(s): COLONOSCOPY Previous Hospitalizations/Surgeries HX Hospitalizations: No Any Problems With Anesthesia: No You/Your Family Experience Fever (Hyperthermia) With Anes: No Cholinesterase deficiency: No Cardiovascular Hx Hypertension: No Respiratory Hx Asthma: Yes (exercise induced) Hx Sleep Apnea: No Hx Respiratory Tract Infection/Cold (presently): No Do You Snore Loudly (louder than talking or can be heard): No Do You Often Feel Tired/ Fatigued/ Sleepy Dring Daytime?: No Has Anyone Observed You Stop Breathing During Sleep?: No Result (for STOP score): Negative Smoking Status: Never smoker Neurological Hx Back Injury/Pain: Yes Does patient have nerve stimulator: No Miscellaneous Recent Exposure to Contagious Disease: No Allergies Mknzksk-KHU-InE Reductase Inhibitor Allergy (Unknown, Verified 12/26/24 09:22) Pain in joints Discharge Is Pt Admitted From a Custodial, or a [facility]: No Who Could Help: After D/C, Where Do you Plan to Go: Return Home Vital Signs Vital Signs Vital Signs: 12/26/24 09:24 12/26/24 09:24 Temperature 97.3 F L Temperature Source Temporal Pulse Rate 63 Respiratory Rate 18 Respiratory Pattern Normal Blood Pressure 133/91 H Blood Pressure Mean 105 Blood Pressure Source Monitor Blood Pressure Position Semi-Fowlers Blood Pressure Location Right Arm Pulse Ox 98 Oxygen Delivery Method Room Air Weight Weight: 194 lb 0.108 oz Body Mass Index (BMI) 27.8 Physical Exam Const alert, oriented x3 and no apparent distress HEENT normocephalic and head/scalp atraumatic Resp normal respiratory effort Cardio regular rate GI soft to palpation and non-tender; Negative for non-distended Palpation: Negative for guarding Extremity no clubbing, cyanosis or edema Skin no rashes or lesions noted Neuro CN's II-XII intact bilaterally Psych mental status grossly normal Assessment & Plan Assessment/Plan (1) Colon cancer screening: Surgery Risks - Colonoscopy I discussed with the patient the risks of the procedure: Yes Risks Include but are not Limited To: Risks include but are not limited to: Bleeding, perforation requiring further surgery, inability to complete colonoscopy requiring barium enema.
--- NOTE | 2024-12-26 10:30 | COLBX_PTH ---
PATIENT: CHELSI WU LOC: EN U#:[id number] AGE/SX: 54/M ROOM: RE12/26/[address]: Dr. Jaimee Mendez MD : 1970 BED: DIS: 12/26/2024 SPEC #: [id number] RECD: 12/26/24 12:28 STATUS: [facility] REQ #: [id number] FARIDEH: 12/26/24 10:[address]: Jaimee Mendez DEPT: SURGICAL PATHOLOGY RECD BY: Sonal Hilton ENTERED: 12/26/24 12:48 SP TYPE: COLON BX OTHR DR: Dr. Jacob Ugarte MD Tissues: A - Rectum, NOS B - Cecum, NOS Procedures: Surgery Specimen Level IV HEADER OPERATION: Colonoscopy with biopsy PRE-OP DIAGNOSIS: Screening TISSUE SUBMITTED: A- Rectal biopsy abnormal mucosa, B- Cecal biopsy MICROSCOPIC DIAGNOSIS A: RECTUM, BIOPSY: * Mucosal lymphoid aggregate. B: CECUM, BIOPSY: * Mucosal lymphoid aggregates. MICROSCOPIC DESCRIPTION Slides are reviewed. GROSS DESCRIPTION A.Received in fixative is one container labeled with the patient's name and designated Rectal biopsy abnormal mucosa. The specimen consists of two irregular fragments of light hodges soft tissue that in aggregate measure 0.7 x 0.4 x 0.2 cm. The specimen is totally submitted in one cassette. B. Received in fixative is one container labeled with the patient's name and designated Cecal biopsy. The specimen consists of one irregular fragment of light hodges soft tissue that measures 0.5 x 0.3 x 0.1 cm. The specimen is totally submitted in one cassette. / 12/26/2024 CPT:42235t0
--- NOTE | 2024-12-26 11:25 | PCM.POST.ANE ---
Anesthesia: Postop Eval I Current Vital Signs Temperature: 97.4 F Pulse Rate: 74 Blood Pressure: 124/78 Respiratory Rate: 16 Pulse Ox: 96 Oxygen Delivery Method: Room Air Assessment Airway patent: Yes Spontaneous unlabored respirations: Yes Mental status: Awake and Calm nausea: No Vomiting: No Anesthesia Complication: No Fluid Hydration Crystalloid volume administer (ml): 10 Total IV fluid infused: 10 Progress Note Anesthesia document: Postop Eval 1 completed: Yes
--- NOTE | 2024-12-26 11:35 | OP.COLON_ITS ---
Patient Name: Blaine Cronin Procedure Date: 12/26/2024 11:14 AM Date of : 1970 Age: 54 Procedure: Colonoscopy Indications: Screening for colorectal malignant neoplasm Providers: Jaimee Mendez MD Medicines: Monitored Anesthesia Care Patient Profile: This is a 54 year old male. Last Colonoscopy: none. The patient's first colonoscopy is today. Complications: No immediate complications. Procedure: Pre-Anesthesia Assessment: - Prior to the procedure, a History and Physical was performed, and patient medications and allergies were reviewed. The patient's tolerance of previous anesthesia was also reviewed. The risks and benefits of the procedure and the sedation options and risks were discussed with the patient. All questions were answered, and informed consent was obtained. Prior Anticoagulants: The patient has taken no anticoagulant or antiplatelet agents. ASA Grade Assessment: Per anesthesia. After reviewing the risks and benefits, the patient was deemed in satisfactory condition to undergo the procedure. After I obtained informed consent, the scope was passed under direct vision. Throughout the procedure, the patient's blood pressure, pulse, and oxygen saturations were monitored continuously. The Colonoscope was introduced through the anus and advanced to the cecum, identified by the appendiceal orifice, ileocecal valve and palpation. The colonoscopy was performed without difficulty. The patient tolerated the procedure well. The quality of the bowel preparation was good. Scope In: 11:15:06 AM Scope Withdrawal Time 0 hours 8 minutes 58 seconds Scope Out: 11:30:31 AM Total Procedure Duration Time 0 hours 15 minutes 25 seconds Findings: The perianal and digital rectal examinations were normal. An area of moderately erythematous mucosa was found in the rectum and in the cecum. Biopsies were taken with a cold forceps for histology. The exam was otherwise without abnormality on direct and retroflexion views. Impression: - Erythematous mucosa in the rectum and in the cecum. Biopsied. - The examination was otherwise normal on direct and retroflexion views. Recommendation: - Discharge patient to home. - Resume previous diet. - Continue present medications. - Await pathology results. - Repeat colonoscopy in 5-10 years for surveillance based on pathology results. Procedure Code(s): --- Professional --- 01919, PT, Colonoscopy, flexible; with biopsy, single or multiple Diagnosis Code(s): --- Professional --- Z12.11, Encounter for screening for malignant neoplasm of colon K62.89, Other specified diseases of anus and rectum K63.89, Other specified diseases of intestine CPT copyright 2021 [employer]. All rights reserved. The codes documented in this report are preliminary and upon cash processor review may be revised to meet current compliance requirements. MD Jaimee Hope MD 12/26/2024 11:34:45 AM This report has been signed electronically. Number of Addenda: 0 Note Initiated On: 12/26/2024 11:14 AM
--- NOTE | 2024-12-26 11:35 | OP.CCLET_ITS ---
12/26/2024 Jacob Ugarte MD [address] [place] [address] [place] [address] Re : Colonoscopy procedure for Blaine Cronin Dear Dr. Ugarte This procedure was performed on Thursday, December 26, 2024. My impressions and recommendations are as follows: Impressions : - Erythematous mucosa in the rectum and in the cecum. Biopsied. - The examination was otherwise normal on direct and retroflexion views. Recommendations : - Discharge patient to home. - Resume previous diet. - Continue present medications. - Await pathology results. - Repeat colonoscopy in 5-10 years for surveillance based on pathology results. My findings are described in the full procedure note, which is enclosed. If I can be of further assistance, please feel free to contact me at Doctor phone number(s): , Work: . Sincerely, MD Jaimee Hope MD 12/26/2024 11:34:45 AM This report has been signed electronically.
--- NOTE | 2024-12-26 12:09 | POSTOPAN2_ITS ---
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
--- NOTE | 2024-12-26 12:09 | PCM.POSTANE2 ---
Anesthesia Postop Eval I Sum Postop Eval Completion status Anesthesia document: Postop Eval 1 completed: Yes Anesthesia Postop Eval I Summary Anesthesia Postop Eval I Summary: Anesthesia Postop Eval I: Assessment Summary Airway patent Yes 12/26/24 11:38 [email or web address] Spontaneous unlabored Yes 12/26/24 11:27 [email or web address] respirations Mental status Awake,Calm 12/26/24 11:27 [email or web address] nausea No 12/26/24 11:27 CAFE [email or web address] Vomiting No 12/26/24 11:27 [email or web address] Anesthesia Postop Eval I: Fluid Summary Crystalloid volume administer 10 12/26/24 11:27 [email or web address] [email or web address] (ml) Colloids volume administered ( ml) Blood Product volume administered (ml) Total IV fluid infused 10 12/26/24 11:27 CAFE [email or web address] Anesthesia Postop Eval I: Summary Notes Anesthesia Complication No 12/26/24 11:27 CAFE [email or web address] Anesthesia Complication Comment: Post-operative progress note Anesthesia: Postop Eval II Evaluation Mental status: Awake Pain Level: 0 nausea: No Vomiting: No
== END 2024-12-26 12:23 | disposition home or self-care (01) ==
LOC: EN 08:56 → AC 08:57
PROVIDERS: PCP Internal Medicine; Referring Provider Internal Medicine; Visit Provider Surgery
PROC: 0DJD8ZZ Inspection of Lower Intestinal Tract, Via Natural or Artificial Opening Endoscopic (ICD-10-PCS; CPT 45378; principal; 2024-12-26 10:25)
DX: Z12.11 Encounter for screening for malignant neoplasm of colon (principal); K62.89 Other specified diseases of anus and rectum; K63.89 Other specified diseases of intestine; E78.00 Pure hypercholesterolemia, unspecified; K21.9 Gastro-esophageal reflux disease without esophagitis; R14.0 Abdominal distension (gaseous); J45.909 Unspecified asthma, uncomplicated; Z79.899 Other long term (current) drug therapy
CPT/HCPCS: 45380; 88305; J2405